=== PATIENT | male | born 1965 | race Caucasian/White ===

== ENCOUNTER 2024-01-08 19:57 | Inpatient (IN) ==
--- NOTE | 2024-01-08 20:47 | Emergency Department Note ---
Impression & Plan Acute hyponatremia, Weakness ED Provider Note NAME: DAVE [id number] SHAHLA AGE: 58 SEX: M : 1965 ARRIVES VIA: Walk-In INFORMANT: Patient ED PROVIDER(S): Lennox Zimmerman DO CHIEF COMPLAINT: dizzy HPI: Patient is a 58-year-old male who presents ER for dizziness which has been present for the past 2 weeks. He notes he has a history of hyponatremia and [facility] Per the guards he has had blood work drawn and his sodium was slightly low. Patient denies any headache or change in vision. No chest pain or shortness of breath. No nausea, vomiting, or diarrhea. No dysuria, urgency, or frequency. No other exacerbating or remitting factors. ADDITIONAL HISTORY OBTAINED: Per HPI Chronic Medical/Social Conditions Affecting Care: Per HPI PAST MEDICAL HISTORY:See Below PAST SURGICAL HISTORY:See Below FAMILY HISTORY:See Below SOCIAL HISTORY:See Below HOME MEDICATIONS:See Below ALLERGIES:See Below VITALS:See Below PHYSICAL EXAMINATION: GENERAL: Sitting up in bed, alert, well appearing, well nourished, no distress, non-toxic EYE EXAM: normal conjunctiva. PERRL and EOM's intact. OROPHARYNX: no exudate, no erythema, lips, buccal mucosa, and tongue normal and mucous membranes are moist NECK: supple, no nuchal rigidity, no adenopathy, non-tender LUNGS: Clear to auscultation. Normal chest wall mechanics HEART: no murmurs, S1 normal and S2 normal ABDOMEN: abdomen soft, non-tender, normo-active bowel sounds, no masses, no rebound or guarding. UPPER EXTREMITIES: upper extremities are grossly normal. LOWER EXTREMITIES: No pitting edema. NEURO EXAM: Normal sensorium, cranial nerves II-XII intact, normal speech, no weakness of arms, no weakness of legs. No drift. Finger to nose intact. Gross sensation intact. MEDICAL DECISION MAKING: Patient is a 58-year-old male who presents ER [facility] for [facility]. IV was established blood work is obtained. Labs show no significant leukocytosis or anemia. BMP with hyponatremia 126. No other sodiums to go off of. T. bili LFTs troponin was negative. Lipase was normal. COVID-negative. CT angios of the head and neck were negative. He was given IV fluids. Updated bedside. Discussed with the guards as well as the hospitalist here and patient will be admitted for further workup of his hyponatremia and dizziness Consults/Care Managements Discussions: Per MDM Triage Nursing notes reviewed. Limited review of prior medical records performed Vital Signs: reviewed and remarkable for HTN Differential diagnosis: Differential diagnosis includes etiologies such as benign positional vertigo, dehydration, hypovolemia, anemia, tumor, infection, hypoglycemia, electrolyte abnormalities, cardiac sources, intracerebral event, toxicologic, neurological, as well as others were entertained. ER treatment provided: See below Diagnostics interpreted by me include EKG and cardiac monitoring as listed below: -Cardiac Monitoring: An order was placed for continuous cardiac monitoring. The monitor shows a rate of 70 with sinus rhythm. -ECG: Sinus rhythm rate of 58 Normal axis No PVCs QTc 396 -Laboratory studies:Interpreted by me as stated above in MDM and shown below. Imaging studies: Xrays: As interpreted by me: Portable AP upright 1 view of the chest shows no focal infiltrate CTs show: none Procedures:none Critical Care: None Past Med/Surg History Social History Smoking Status: Current every day smoker Preferred Language: Welsh Feels Safe at Home: Yes Results & Data (ED) Vital Signs Vital Signs - 24 hr 01/08/24 20:04 01/08/24 20:38 01/08/24 20:50 Temperature 36.3 C L 36.9 C Temperature Source Temporal Artery Scan Oral Pulse Rate 65 61 Pulse Rate [Apical] 68 Pulse Rate from SpO2 Sensor Pulse Rhythm [Apical] Regular Pulse Strength [Apical] Normal Respiratory Rate 18 20 Respiratory Effort / Characteristics Non-Labored Spontaneous Respiratory Depth Normal Respiratory Pattern Regular Blood Pressure 158/94 H Blood Pressure [Left Arm] 118/90 Blood Pressure Mean 115 Blood Pressure Mean [Left Arm] 99 Blood Pressure Position [Left Arm] Semi-fowlers Pulse Oximetry 98 93 Oxygen Delivery Method Room Air Room Air Sepsis Recent Fever Within 48 Hours No Sepsis New/Unexplained Change in Mental Status No Sepsis Action Taken by Nursing No Action Required 01/08/24 20:50 01/08/24 21:40 Temperature Temperature Source Pulse Rate 56 L Pulse Rate [Apical] Pulse Rate from SpO2 Sensor 57 L Pulse Rhythm [Apical] Pulse Strength [Apical] Respiratory Rate 20 Respiratory Effort / Characteristics Respiratory Depth Respiratory Pattern Blood Pressure 132/72 Blood Pressure [Left Arm] Blood Pressure Mean 92 Blood Pressure Mean [Left Arm] Blood Pressure Position [Left Arm] Pulse Oximetry 93 100 Oxygen Delivery Method Room Air Room Air Sepsis Recent Fever Within 48 Hours Sepsis New/Unexplained Change in Mental Status Sepsis Action Taken by Nursing Laboratory Data 01/08/24 20:25 01/08/24 20:25 Lab Results 01/08/24 01/08/24 Range/Units 20:25 22:20 WBC 6.86 (4.8-10.8) K/ul RBC 3.74 L (4.70-6.10) M/uL Hgb 12.1 L (14.0-18.0) g/dl Hct 33.4 L (42.0-52.0) % MCV 89.3 (80.0-100.0) fL MCH 32.4 (25.0-34.0) pg MCHC 36.2 H (32.0-36.0) g/dL RDW Std Deviation 38.0 (36.4-46.3) fL RDW Coeff of Nancy 11.9 (11.5-14.5) % Plt Count 221 (130-400) K/uL MPV 8.9 L (9.4-12.4) fL Immature Gran % (Auto) 0.3 % Neut % (Auto) 45.9 % Lymph % (Auto) 41.4 % [place] % (Auto) 11.1 % Eos % (Auto) 1.0 % Baso % (Auto) 0.3 % Neut # (Auto) 3.15 (1.40-6.50) K/uL Lymph # (Auto) 2.84 (1.20-3.40) K/uL [place] # (Auto) 0.76 H (0.11-0.59) K/uL Eos # (Auto) 0.07 (0.00-0.50) K/uL Baso # (Auto) 0.02 (0.00-0.20) K/uL Immature Gran # (Auto) 0.02 (0.01-0.20) K/uL Sodium 126 L (136-145) mmol/L Potassium 4.2 (3.5-5.1) mmol/L Chloride 94 L (98-107) mmol/L Carbon Dioxide 27 (21-32) mmol/L Anion Gap 5 (3-11) BUN 14 (6-23) mg/dl Creatinine 0.59 L (0.6-1.4) mg/dl Est Cr Clr Drug Dosing 141.8 ml/min Est GFR ( Amer) 127.5 ml/min Est GFR (Non-Af Amer) 110.0 ml/min BUN/Creatinine Ratio 23.7 H (10-20) Glucose 98 (70-99(Fasting)) mg/dl Calcium 9.1 (8.6-10.3) mg/dl Total Bilirubin 0.3 (0.2-1.0) mg/dl AST 13 (13-39) U/L ALT 12 (7-52) U/L Alkaline Phosphatase 63 (34-104) U/L Troponin I High Sens < 2.3 (0-20) pg/ml Total Protein 6.8 (6.0-8.3) gm/dl Albumin 3.8 (3.4-5.0) gm/dl Globulin 3.0 (2.5-4.0) gm/dl Albumin/Globulin Ratio 1.3 (0.9-2) Lipase 9 L (11-82) U/L SARS-CoV-2, RNA, NAAT NEGATIVE (NEGATIVE) Administered Medications Discontinued Medications Sodium Chloride (Nss) 1,000 mls @ 999 mls/hr IV .Q1H1M ONE Stop: 01/08/24 21:45 Last Infusion: 01/08/24 22:47 Dose: Infused Documented By: Admin: 01/08/24 21:19 Dose: 999 mls/hr Documented By: FRANCY Ioversol (Optiray 320 125ml) 117 ml IV ONCE ONE Stop: 01/08/24 21:31 Last Admin: 01/08/24 21:31 Dose: 117 ml Documented By: KELLEN Imaging Data Radiologist's Impression: Head CTA 01/08/24 20:45 Exam(s): CTA HEAD W/WO Contrast IV Amt: 117 ml optiray 320 EXAM: CT Angiography Head Without and With Intravenous Contrast CLINICAL HISTORY: Dizziness. TECHNIQUE: Axial computed tomographic angiography images of the head without and with intravenous contrast. CTDI is 37.42 mGy and DLP is 693.86 mGy-cm. Automated exposure control was utilized for the study. A dose lowering technique was utilized adhering to the principles of ALARA. MIP reconstructed images were created and reviewed. CONTRAST: Patient received 117 ml optiray 320 of IV contrast COMPARISON: No relevant prior studies available. FINDINGS: VASCULATURE: Right internal carotid artery: No acute findings. Intracranial segment is patent with no significant stenosis. No aneurysm. Right anterior cerebral artery: Unremarkable. No occlusion or significant stenosis. No aneurysm. Right middle cerebral artery: Unremarkable. No occlusion or significant stenosis. No aneurysm. Right posterior cerebral artery: Unremarkable. No occlusion or significant stenosis. No aneurysm. Right vertebral artery: Unremarkable as visualized. Left internal carotid artery: Mild atherosclerosis of the intracranial portion of the left internal carotid artery without significant stenosis. No aneurysm. Left anterior cerebral artery: Unremarkable. No occlusion or significant stenosis. No aneurysm. Left middle cerebral artery: Unremarkable. No occlusion or significant stenosis. No aneurysm. Left posterior cerebral artery: Unremarkable. No occlusion or significant stenosis. No aneurysm. Left vertebral artery: Unremarkable as visualized. Basilar artery: Unremarkable. No occlusion or significant stenosis. No aneurysm. HEAD: Brain: No intracranial hemorrhage, mass-effect or midline shift. No abnormal extra axial fluid. No evidence of acute infarct. Mild periventricular white matter hypodensities are most consistent with chronic microangiopathy. Ventricles: Unremarkable. No ventriculomegaly. Bones/joints: No acute fracture. Soft tissues: Unremarkable. Sinuses: Unremarkable as visualized. No acute sinusitis. Mastoid air cells: Unremarkable as visualized. No mastoid effusion. IMPRESSION: 1. No acute intracranial finding. 2. No acute finding of the arteries of the head. Electronically signed by: Mahnaz Aguilera MD 01/08/24 22:24 PM Discharge Plan Visit Data Chief Complaint: Illness Stated Complaint: DELIRIUM, LOW SODIUM ED Provider: Lennox Zimmerman Discharge Problem: Acute hyponatremia, Weakness Forms Stand Alone Forms: [facility] Referrals Referrals: PCP,NO [Physician] -
[2024-01-08 21:05] LABS: Alanine Aminotransferase 12 U/L (7-52); Albumin Globulin Ratio 1.3 (0.9-2); Albumin Level 3.8 gm/dl (3.4-5.0); Alkaline Phosphatase 63 U/L (34-104); Anion Gap 5 (3-11); Aspartate Aminotransferase 13 U/L (13-39); BUN Creatinine Ratio 23.7 (10-20); Bilirubin,Total 0.3 mg/dl (0.2-1.0); Blood Urea Nitrogen 14 mg/dl (6-23); Calcium 9.1 mg/dl (8.6-10.3); Carbon Dioxide 27 mmol/L (21-32); Chloride 94 mmol/L (98-107); Creatinine Clr Calc Pharmacy 141.8 ml/min; Est GFR (African American) 127.5 ml/min; Glucose 98 mg/dl (70-99(Fasting)); Lipase 9 U/L (11-82); Potassium 4.2 mmol/L (3.5-5.1); Sodium 126 mmol/L (136-145); Total Protein 6.8 gm/dl (6.0-8.3)
[2024-01-08 21:12] LABS: Troponin I High Sensitivity < 2.3 pg/ml (0-20)
[2024-01-08] MEDS: SODIUM CHLORIDE 0.9% 1,000 ML IV ONE (21:19)
[2024-01-08 21:26] LABS: Basophils # (auto) 0.02 K/uL (0.00-0.20); Basophils % (auto) 0.3 %; Eosinophils # (auto) 0.07 K/uL (0.00-0.50); Hematocrit (blood only) 33.4 % (42.0-52.0); Hemoglobin 12.1 g/dl (14.0-18.0); Immature Granulocytes # (auto) 0.02 K/uL (0.01-0.20); Immature Granulocytes % (auto) 0.3 %; Lymphocytes # (auto) 2.84 K/uL (1.20-3.40); Lymphocytes % (auto) 41.4 %; Mean Corpuscular Hemoglobin 32.4 pg (25.0-34.0); Mean Corpuscular Hgb Conc 36.2 g/dL (32.0-36.0); Mean Corpuscular Volume 89.3 fL (80.0-100.0); Mean Platelet Volume 8.9 fL (9.4-12.4); Monocytes # (auto) 0.76 K/uL (0.11-0.59); Monocytes % (auto) 11.1 %; Neutrophils # (auto) 3.15 K/uL (1.40-6.50); Neutrophils % (auto) 45.9 %; Platelet Count 221 K/uL (130-400); RDW Coefficient of Variation 11.9 % (11.5-14.5); Red Blood Count 3.74 M/uL (4.70-6.10); White Blood Count 6.86 K/ul (4.8-10.8)
[2024-01-08] MEDS: OPTIRAY 320 125ml IV ONE (21:31)
--- NOTE | 2024-01-08 22:25 | CT Scan Report ---
Exam(s): CTA HEAD W/WO Contrast IV Amt: 117 ml optiray 320 EXAM: CT Angiography Head Without and With Intravenous Contrast CLINICAL HISTORY: Dizziness. TECHNIQUE: Axial computed tomographic angiography images of the head without and with intravenous contrast. CTDI is 37.42 mGy and DLP is 693.86 mGy-cm. Automated exposure control was utilized for the study. A dose lowering technique was utilized adhering to the principles of ALARA. MIP reconstructed images were created and reviewed. CONTRAST: Patient received 117 ml optiray 320 of IV contrast COMPARISON: No relevant prior studies available. FINDINGS: VASCULATURE: Right internal carotid artery: No acute findings. Intracranial segment is patent with no significant stenosis. No aneurysm. Right anterior cerebral artery: Unremarkable. No occlusion or significant stenosis. No aneurysm. Right middle cerebral artery: Unremarkable. No occlusion or significant stenosis. No aneurysm. Right posterior cerebral artery: Unremarkable. No occlusion or significant stenosis. No aneurysm. Right vertebral artery: Unremarkable as visualized. Left internal carotid artery: Mild atherosclerosis of the intracranial portion of the left internal carotid artery without significant stenosis. No aneurysm. Left anterior cerebral artery: Unremarkable. No occlusion or significant stenosis. No aneurysm. Left middle cerebral artery: Unremarkable. No occlusion or significant stenosis. No aneurysm. Left posterior cerebral artery: Unremarkable. No occlusion or significant stenosis. No aneurysm. Left vertebral artery: Unremarkable as visualized. Basilar artery: Unremarkable. No occlusion or significant stenosis. No aneurysm. HEAD: Brain: No intracranial hemorrhage, mass-effect or midline shift. No abnormal extra axial fluid. No evidence of acute infarct. Mild periventricular white matter hypodensities are most consistent with chronic microangiopathy. Ventricles: Unremarkable. No ventriculomegaly. Bones/joints: No acute fracture. Soft tissues: Unremarkable. Sinuses: Unremarkable as visualized. No acute sinusitis. Mastoid air cells: Unremarkable as visualized. No mastoid effusion. IMPRESSION: 1. No acute intracranial finding. 2. No acute finding of the arteries of the head. Electronically signed by: Mahnaz Aguilera MD 01/08/24 22:24 PM
--- NOTE | 2024-01-09 02:11 | History & Physical Report ---
Date of Service January 09, 2024 Assessment & Plan (1) Acute hyponatremia: Plan: 58-year-old male with past medical history significant for hyperlipidemia, hypertension, depression, back pain, history of opiate use withdrawal, history of intermittent asthma GERD, [facility] disorder [facility] because [facility]. Patient states he had hyponatremia up to 4 times in about last couple of years. States his psych meds were adjusted and at 1 point of time on salt tablets.. Last 2 weeks he is feeling weak and fatigued not able to think straight and decreased concentration which are his usual symptoms for hyponatremia. Appetite is okay. No nausea vomiting. No diarrhea or constipation. Denies any headache. No dizziness. Vision is okay. No earache or runny nose or sore throat. No cough. No fevers. No chest pain or shortness of breath. No abdominal pain. Normal bowel and bladder movements. Currently resting comfortably and hemodynamically stable. Acute hyponatremia Sodium 126 Will do serum osmolality, urine osmolality and urine sodium levels Possible SIADH Will do fluid restrictions 1200 mill per day Slow correction BMP every 6 hours Consult nephrology for further recommendations Close monitoring med/tele Depression Anxiety Psychiatric illness Continue current medications Hypertension On propranolol and losartan Will monitor Hyperlipidemia On statin DVT prophylaxis Lovenox Disposition Med/tele Full code History of Present Illness Chief Complaint: Hyponatremia Primary Care Provider: NELI Byers 58-year-old male with past medical history significant for hyperlipidemia, hypertension, depression, back pain, history of opiate use withdrawal, history of intermittent asthma GERD, anxiety disorder coming from [facility] because of hyponatremia. Patient states he had hyponatremia about 4 times in about last couple of years. States his psych meds were adjusted and at one point of time was on salt tablets.. Last 2 weeks he is feeling weak and fatigued not able to think straight and decreased concentration which are his usual symptoms for hyponatremia. Appetite is okay. No nausea vomiting. No diarrhea or constipation. Denies any headache. No dizziness. Vision is okay. No earache or runny nose or sore throat. No cough. No fevers. No chest pain or shortness of breath. No abdominal pain. Normal bowel and bladder movements. Currently resting comfortably and hemodynamically stable. Past medical history as mentioned above Past surgical history. He has no surgeries. He has a plate in his right hand. Social history. Smokes about a pack a day. No alcohol. 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 Family history. Father and mother had depression. Father had multiple back surgeries. Allergies Allergy/AdvReac Type Severity Reaction Status Date / Time No Known Allergies Allergy Unverified 01/09/24 01:21 Home Medications Medication Instructions Recorded Confirmed Type atorvastatin 10 mg tablet 10 mg PO HS 01/09/24 01/09/24 History cyanocobalamin (vitamin B-12) 500 500 mcg PO DAILY 01/09/24 01/09/24 History mcg tablet (Vitamin B-12) divalproex 500 mg tablet,delayed 1,000 mg PO BID 01/09/24 01/09/24 History release duloxetine 30 mg capsule,delayed 30 mg PO QAM 01/09/24 01/09/24 History release duloxetine 60 mg capsule,delayed 60 mg PO QPM 01/09/24 01/09/24 History release famotidine 20 mg tablet 20 mg PO DAILY 01/09/24 01/09/24 History guanfacine 1 mg tablet 1 mg PO HS 01/09/24 01/09/24 History hydroxyzine pamoate 50 mg capsule 50 mg PO DAILY 01/09/24 01/09/24 History hydroxyzine pamoate 50 mg capsule 100 mg PO HS 01/09/24 01/09/24 History levothyroxine 50 mcg tablet 50 mcg PO DAILY 01/09/24 01/09/24 History losartan 25 mg tablet 25 mg PO QPM 01/09/24 01/09/24 History naltrexone microspheres 380 mg 380 mg IM .[id number] 01/09/24 01/09/24 History intramuscular suspension,extended release (Vivitrol) omeprazole 20 mg tablet,delayed 20 mg PO DAILY 01/09/24 01/09/24 History release oxcarbazepine 300 mg tablet 300 mg PO BID 01/09/24 01/09/24 History oxybutynin chloride 5 mg tablet 5 mg PO BID 01/09/24 01/09/24 History propranolol 20 mg tablet 20 mg PO QAM 01/09/24 01/09/24 History propranolol 40 mg tablet 40 mg PO HS 01/09/24 01/09/24 History Past Med/Surg History Social History Smoking Status: Current every day smoker Tobacco Type: E-cigarettes / Vaping Second Hand Exposure: No; Do You Dip or Chew Tobacco: No; Tobacco Cessation Education Requested by Patient: No Hx Alcohol Use: No Hx Substance Use: No Preferred Language: Russian Communication Ability: Effective Sign Builder Supervisor Required: No Beliefs That Will Affect Care: None Current Living Situation: Other Current Living Situation Comment: [facility] Other Information That Helps Us Care for You: No Feels Safe at Home: Yes Safety Concerns: Feels Safe At This Time Assistive Devices: None Review of Systems Review of Systems: All systems reviewed & are unremarkable except as noted in HPI & below Physical Exam Physical Exam: General- Not in distress. Head- atraumatic Eyes- PERRL. ENT- oropharynx clear Neck- supple, no JVD. Lungs- clear to auscultation no wheezing or crackles. Heart- regular rhythm; no murmur, no gallop. Abdomen- normal bowel sounds, soft, nontender, no distension. Extremities- no pretibial edema, no erythema seen. Neuro- alert, oriented PERRL, no facial palsy; no dysarthria; moves extremities. Skin- warm & dry Results & Data Results & Data Vital Signs (Past 12 Hours) Vital Signs Temp Pulse Pulse Resp BP BP Pulse Ox 01/09/24 01:00 54 L 16 140/91 96 01/08/24 21:40 56 L 20 132/72 100 01/08/24 20:50 93 01/08/24 20:50 36.9 C 68 20 118/90 93 01/08/24 20:38 61 01/08/24 20:04 36.3 C L 65 18 158/94 H 98 O2 Del Method 01/09/24 01:00 Room Air 01/08/24 21:40 Room Air 01/08/24 20:50 Room Air 01/08/24 20:50 Room Air 01/08/24 20:38 01/08/24 20:04 Room Air Diagnostic Findings Laboratory Results WBC 6.86 K/ul (4.8-10.8) 01/08/24 20:25 RBC 3.74 M/uL (4.70-6.10) L 01/08/24 20:25 Hgb 12.1 g/dl (14.0-18.0) L 01/08/24 20:25 Hct 33.4 % (42.0-52.0) L 01/08/24 20:25 MCV 89.3 fL (80.0-100.0) 01/08/24 20: MCH 32.4 pg (25.0-34.0) 01/08/24: MCHC 36.2 g/dL (32.0-36.0) H 01/08/24: RDW Std Deviation 38.0 fL (36.4-46.3) 01/08/24: RDW Coeff of Nancy 11.9 % (11.5-14.5) 01/08/24: Plt Count 221 K/uL (130-400) 01/08/24 20: MPV 8.9 fL (9.4-12.4) L 01/08/24: Immature Gran % (Auto) 0.3 % 01/08/24: Neut % (Auto) 45.9 % 01/08/24: Lymph % (Auto) 41.4 % 01/08/24: [place] % (Auto) 11.1 % 01/08/24: Eos % (Auto) 1.0 % 01/08/24: Baso % (Auto) 0.3 % 01/08/24: Neut # (Auto) 3.15 K/uL (1.40-6.50) 01/08/24: Lymph # (Auto) 2.84 K/uL (1.20-3.40) 01/08/24: [place] # (Auto) 0.76 K/uL (0.11-0.59) H 01/08/24: Eos # (Auto) 0.07 K/uL (0.00-0.50) 01/08/24 20: Baso # (Auto) 0.02 K/uL (0.00-0.20) 01/08/24: Immature Gran # (Auto) 0.02 K/uL (0.01-0.20) 01/08/24: Sodium 126 mmol/L (136-145) L 01/08/24: Potassium 4.2 mmol/L (3.5-5.1) 01/08/24 20: Chloride 94 mmol/L (98-107) L 01/08/24 20: Carbon Dioxide 27 mmol/L (21-32) 01/08/24 20:25 Anion Gap 5 (3-11) 01/08/24 20:25 BUN 14 mg/dl (6-23) 01/08/24 20:25 Creatinine 0.59 mg/dl (0.6-1.4) L 01/08/24 20:25 Est Cr Clr Drug Dosing 141.8 ml/min 01/08/24 20:25 Est GFR ( Amer) 127.5 ml/min 01/08/24 20:25 Est GFR (Non-Af Amer) 110.0 ml/min 01/08/24 20:25 BUN/Creatinine Ratio 23.7 (10-20) H 01/08/24 20:25 Glucose 98 mg/dl (70-99(Fasting)) 01/08/24 20: Calcium 9.1 mg/dl (8.6-10.3) 01/08/24 20: Total Bilirubin 0.3 mg/dl (0.2-1.0) 01/08/24 20:25 AST 13 U/L (13-39) 01/08/24 20:25 ALT 12 U/L (7-52) 01/08/24 20:25 Alkaline Phosphatase 63 U/L (34-104) 01/08/24 20:25 Troponin I High Sens < 2.3 pg/ml (0-20) 01/08/24 20: Total Protein 6.8 gm/dl (6.0-8.3) 01/08/24 20:25 Albumin 3.8 gm/dl (3.4-5.0) 01/08/24 20:25 Globulin 3.0 gm/dl (2.5-4.0) 01/08/24 20:25 Albumin/Globulin Ratio 1.3 (0.9-2) 01/08/24 20:25 Lipase 9 U/L (11-82) L 01/08/24 20:25 SARS-CoV-2, RNA, NAAT NEGATIVE (NEGATIVE) 01/08/24 22:20 Impressions Head CTA 01/08/24 20:45 Exam(s): CTA HEAD W/WO Contrast IV Amt: 117 ml optiray 320 EXAM: CT Angiography Head Without and With Intravenous Contrast CLINICAL HISTORY: Dizziness. TECHNIQUE: Axial computed tomographic angiography images of the head without and with intravenous contrast. CTDI is 37.42 mGy and DLP is 693.86 mGy-cm. Automated exposure control was utilized for the study. A dose lowering technique was utilized adhering to the principles of ALARA. MIP reconstructed images were created and reviewed. CONTRAST: Patient received 117 ml optiray 320 of IV contrast COMPARISON: No relevant prior studies available. FINDINGS: VASCULATURE: Right internal carotid artery: No acute findings. Intracranial segment is patent with no significant stenosis. No aneurysm. Right anterior cerebral artery: Unremarkable. No occlusion or significant stenosis. No aneurysm. Right middle cerebral artery: Unremarkable. No occlusion or significant stenosis. No aneurysm. Right posterior cerebral artery: Unremarkable. No occlusion or significant stenosis. No aneurysm. Right vertebral artery: Unremarkable as visualized. Left internal carotid artery: Mild atherosclerosis of the intracranial portion of the left internal carotid artery without significant stenosis. No aneurysm. Left anterior cerebral artery: Unremarkable. No occlusion or significant stenosis. No aneurysm. Left middle cerebral artery: Unremarkable. No occlusion or significant stenosis. No aneurysm. Left posterior cerebral artery: Unremarkable. No occlusion or significant stenosis. No aneurysm. Left vertebral artery: Unremarkable as visualized. Basilar artery: Unremarkable. No occlusion or significant stenosis. No aneurysm. HEAD: Brain: No intracranial hemorrhage, mass-effect or midline shift. No abnormal extra axial fluid. No evidence of acute infarct. Mild periventricular white matter hypodensities are most consistent with chronic microangiopathy. Ventricles: Unremarkable. No ventriculomegaly. Bones/joints: No acute fracture. Soft tissues: Unremarkable. Sinuses: Unremarkable as visualized. No acute sinusitis. Mastoid air cells: Unremarkable as visualized. No mastoid effusion. IMPRESSION: 1. No acute intracranial finding. 2. No acute finding of the arteries of the head. Electronically signed by: Mahnaz Aguilera MD 01/08/24 22:24 PM ECG Additional Comments: ECG. Normal sinus bradycardia with first-degree AV block at rate of 58. No acute ST changes seen. Code Status & VTE Plan VTE Prophylaxis Plan VTE Prophylaxis will be ordered: Yes
[2024-01-09] MEDS ORDERED: NITROGLYCERIN SL 0.4 MG/TAB TAB SL PRN (03:12)
[2024-01-09] MEDS ORDERED: ACETAMINOPHEN 325 MG TAB PO PRN (03:12)
[2024-01-09] MEDS ORDERED: POLYETHYLENE (MIRALAX) 17 GM PACK PO PRN (03:12)
[2024-01-09 04:30] LABS: Basophils # (auto) 0.02 K/uL (0.00-0.20); Basophils % (auto) 0.3 %; Eosinophils # (auto) 0.07 K/uL (0.00-0.50); Eosinophils % (auto) 1.1 %; Hematocrit (blood only) 35.3 % (42.0-52.0); Hemoglobin 12.6 g/dl (14.0-18.0); Immature Granulocytes # (auto) 0.02 K/uL (0.01-0.20); Immature Granulocytes % (auto) 0.3 %; Lymphocytes # (auto) 2.72 K/uL (1.20-3.40); Lymphocytes % (auto) 42.8 %; Mean Corpuscular Hemoglobin 32.6 pg (25.0-34.0); Mean Corpuscular Hgb Conc 35.7 g/dL (32.0-36.0); Mean Corpuscular Volume 91.5 fL (80.0-100.0); Mean Platelet Volume 8.6 fL (9.4-12.4); Monocytes # (auto) 0.72 K/uL (0.11-0.59); Monocytes % (auto) 11.3 %; Neutrophils # (auto) 2.81 K/uL (1.40-6.50); Neutrophils % (auto) 44.2 %; Platelet Count 216 K/uL (130-400); RDW Coefficient of Variation 12.2 % (11.5-14.5); RDW Standard Deviation 40.7 fL (36.4-46.3); Red Blood Count 3.86 M/uL (4.70-6.10); White Blood Count 6.36 K/ul (4.8-10.8)
[2024-01-09] MEDS: ENOXAPARIN INJ 40 MG/0.4 ML SYR SQ SCH (04:31)
[2024-01-09 04:43] LABS: Calcium 9.2 mg/dl (8.6-10.3); Creatinine Clr Calc Pharmacy 121.3 ml/min; Est GFR (African American) 119.6 ml/min; Est GFR (Non-African American) 103.2 ml/min; Potassium 3.8 mmol/L (3.5-5.1)
[2024-01-09] MEDS: LEVOTHYROXINE SODIUM 50 MCG TABLET PO SCH (06:24)
--- NOTE | 2024-01-09 08:28 | XRay Report ---
XR chest 1V portable CLINICAL HISTORY: Chest pain, nonspecific. COMPARISON STUDY: No previous studies for comparison. FINDINGS: Lung volumes are normal. There is no consolidation. Linear left basilar densities represent atelectasis. There is no pneumothorax or pleural effusion. Cardiac size is normal. Mediastinal conto urs are normal. There is no evidence for pulmonary edema. IMPRESSION: No acute cardiopulmonary findings. ACT 112: Negative or not required by law. Electronically signed by: Jonny Schmitz M.D. 01/09/2024 8:27 AM
[2024-01-09] MEDS: OXcarbazepine 150 MG TABLET PO SCH (08:37)
[2024-01-09] MEDS: oxyBUTYnin chloride 5 MG TAB PO SCH (08:37)
[2024-01-09] MEDS: PROPRANOLOL HCL 20 MG TAB PO SCH ×2 (08:37→21:53)
[2024-01-09] MEDS: FAMOTIDINE 20 MG TAB PO SCH (08:37)
[2024-01-09] MEDS: DULoxetine HCL 30 MG CAP PO SCH (08:37)
[2024-01-09] MEDS: DIVALPROEX DELAY RELEASE 500 MG TAB PO SCH (08:37)
[2024-01-09] MEDS: CYANOCOBALAMIN (B-12) 500 MCG TABLET PO SCH (08:37)
[2024-01-09] MEDS: hydrOXYzine HCl 25 MG TAB PO SCH ×2 (08:37→21:52)
[2024-01-09] MEDS: PANTOprazole 40 MG TAB PO SCH (08:37)
[2024-01-09] MEDS: DEXTROSE 5% 1,000 ML IV SCH (11:23)
[2024-01-09 11:38] LABS: BUN Creatinine Ratio 13.6 (10-20); Creatinine Clr Calc Pharmacy 141.8 ml/min; Est GFR (African American) 127.5 ml/min
--- NOTE | 2024-01-09 11:50 | Nephrology Consultation ---
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 Admission sodium was 126. Urine osmolality was 236 and urine sodium of 60. Patient is on duloxetine and divalproex both of which can cause SIADH. Patient also endorsed high fluid intake well over 100 ounces daily. Sodium is improved with fluid restriction. From renal standpoint patient can be discharged with the fluid limit of 1.5 L daily. Patient is agreeable to follow the fluid limit. He can have repeat sodium in a week and follow-up with his outpatient neurologist at present. History of Present Illness Reason for Consultation: Hyponatremia Requesting Physician: Lopez Zhu MD Attending Physician: Lopez Zhu MD History of Present Illness 58-year-old male with past medical history significant for hyperlipidemia, hypertension, depression, back pain, history of opiate use withdrawal, history of intermittent asthma GERD, anxiety disorder who was admitted from retirement with a sodium of 126. Patient takes divalproex and duloxetine both of which are notorious for causing SIADH. He also told me he drinks well over eight 12 ounce glasses of water in addition to juice and soda. Patient says he was told to have a fluid limit at 1 point but has not been following it. No shortness of breath or leg swelling. He was placed on a fluid limit here and sodium is up trended to 134. Patient is able to eat and drink. No nausea, vomiting or diarrhea. No pain. Urine osmolality was 236, urine sodium of 60, serum osmolality of 278. Allergies Allergy/AdvReac Type Severity Reaction Status Date / Time No Known Allergies Allergy Unverified 01/09/24 01:21 Home Medications Medication Instructions Recorded Confirmed Type atorvastatin 10 mg tablet 10 mg PO HS 01/09/24 01/09/24 History cyanocobalamin (vitamin B-12) 500 500 mcg PO DAILY 01/09/24 01/09/24 History mcg tablet (Vitamin B-12) divalproex 500 mg tablet,delayed 1,000 mg PO BID 01/09/24 01/09/24 History release duloxetine 30 mg capsule,delayed 30 mg PO QAM 01/09/24 01/09/24 History release duloxetine 60 mg capsule,delayed 60 mg PO QPM 01/09/24 01/09/24 History release famotidine 20 mg tablet 20 mg PO DAILY 01/09/24 01/09/24 History guanfacine 1 mg tablet 1 mg PO HS 01/09/24 01/09/24 History hydroxyzine pamoate 50 mg capsule 50 mg PO DAILY 01/09/24 01/09/24 History hydroxyzine pamoate 50 mg capsule 100 mg PO HS 01/09/24 01/09/24 History levothyroxine 50 mcg tablet 50 mcg PO DAILY 01/09/24 01/09/24 History losartan 25 mg tablet 25 mg PO QPM 01/09/24 01/09/24 History naltrexone microspheres 380 mg 380 mg IM .[id number] 01/09/24 01/09/24 History intramuscular suspension,extended release (Vivitrol) omeprazole 20 mg tablet,delayed 20 mg PO DAILY 01/09/24 01/09/24 History release oxcarbazepine 300 mg tablet 300 mg PO BID 01/09/24 01/09/24 History oxybutynin chloride 5 mg tablet 5 mg PO BID 01/09/24 01/09/24 History propranolol 20 mg tablet 20 mg PO QAM 01/09/24 01/09/24 History propranolol 40 mg tablet 40 mg PO HS 01/09/24 01/09/24 History Patient History Social History Smoking Status: Current every day smoker Tobacco Type: E-cigarettes / Vaping Second Hand Exposure: No; Do You Dip or Chew Tobacco: No; Tobacco Cessation Education Requested by Patient: No Hx Alcohol Use: No Hx Substance Use: No Preferred Language: Fijian Communication Ability: Effective Sec Reporting Consultant Required: No Beliefs That Will Affect Care: None Current Living Situation: Other Current Living Situation Comment: [facility] Other Information That Helps Us Care for You: No Feels Safe at Home: Yes Safety Concerns: Feels Safe At This Time Assistive Devices: None Review of Systems 2 Review of Systems: All other systems were reviewed and negative except as noted in HPI Physical Exam 2 Physical Exam: General exam: Appears comfortable, no acute distress HEENT: Pupils are equal and reactive to light Neck: No JVD, neck is supple trachea is midline Respiratory system: Clear breath sounds bilaterally. Gastrointestinal: Abdomen is soft, non distended, non tender, bowel sounds are present CVS: Regular rate and rhythm. No murmurs, rubs or gallops Musculoskeletal: No joint or muscle tenderness Extremities: Non tender, no edema, peripheral pulses are present Neuro: Oriented, no tremors, no focal neurological deficits Skin: No rashes Results & Data Vital Signs (Past 12 Hours) Vital Signs Pulse Pulse Resp BP BP Pulse Ox Pulse Ox 01/09/24 07:23 16 01/09/24 07:03 53 L 01/09/24 07:00 54 L 18 132/84 94 01/09/24 06:46 55 L 16 123/82 96 01/09/24 06:30 59 L 16 91 01/09/24 06:01 53 L 16 96 01/09/24 06:01 133/82 01/09/24 06:00 57 L 14 95 01/09/24 05:30 57 L 14 95 01/09/24 05:00 125/78 01/09/24 05:00 57 L 23 94 01/09/24 04:30 58 L 24 96 01/09/24 04:00 54 L 16 92 01/09/24 04:00 117/75 01/09/24 04:00 96 01/09/24 04:00 55 L 16 117/75 96 01/09/24 03:30 52 L 17 94 01/09/24 03:00 56 L 21 93 01/09/24 02:30 53 L 19 01/09/24 02:00 133/86 01/09/24 02:00 54 L 16 01/09/24 01:30 54 L 17 01/09/24 01:00 56 L 16 01/09/24 01:00 54 L 16 140/91 96 01/09/24 00:37 52 L 01/09/24 00:30 52 L 16 98 01/09/24 00:01 121/97 01/09/24 00:01 51 L 24 81 L 01/09/24 00:00 52 L 16 97 O2 Del Method O2 Del Method O2 Flow Rate 01/09/24 07:23 01/09/24 07:03 01/09/24 07:00 01/09/24 06:46 Room Air 01/09/24 06:30 01/09/24 06:01 01/09/24 06:01 01/09/24 06:00 01/09/24 05:30 01/09/24 05:00 01/09/24 05:00 01/09/24 04:30 01/09/24 04:00 01/09/24 04:00 01/09/24 04:00 Room Air 0 01/09/24 04:00 Room Air 01/09/24 03:30 01/09/24 03:00 01/09/24 02:30 01/09/24 02:00 01/09/24 02:00 01/09/24 01:30 01/09/24 01:00 01/09/24 01:00 Room Air 01/09/24 00:37 01/09/24 00:30 01/09/24 00:01 01/09/24 00:01 01/09/24 00:00 Laboratory Results 01/09/24 10:55 01/08/24 01/09/24 20:25 04:11 WBC 6.86 6.36 RBC 3.74 L 3.86 L MCV 89.3 91.5 MCH 32.4 32.6 MCHC 36.2 H 35.7 RDW Std Deviation 38.0 40.7 RDW Coeff of Nancy 11.9 12.2 Plt Count 221 216 MPV 8.9 L 8.6 L Albumin 3.8
[2024-01-09 17:22] LABS: BUN Creatinine Ratio 9.4 (10-20); Calcium 8.5 mg/dl (8.6-10.3); Creatinine Clr Calc Pharmacy 98.4 ml/min; Est GFR (African American) 109.8 ml/min; Est GFR (Non-African American) 94.7 ml/min
[2024-01-09] MEDS: ATORVASTATIN 10 MG TAB PO SCH (21:49)
[2024-01-09] MEDS: LOSARTAN POTASSIUM 25 MG TAB PO SCH (21:49)
[2024-01-09] MEDS: guanFACINE HCL 1 MG TAB PO SCH (21:49)
[2024-01-09] MEDS: DULoxetine HCL 60 MG CAP PO SCH (21:51)
[2024-01-09 23:36] LABS: BUN Creatinine Ratio 11.3 (10-20); Creatinine Clr Calc Pharmacy 86.3 ml/min; Est GFR (African American) 97.9 ml/min; Est GFR (Non-African American) 84.5 ml/min
--- NOTE | 2024-01-10 06:25 | Electrocardiogram Report ---
Test Reason : Blood Pressure : / mmHG Vent. Rate : 058 BPM Atrial Rate : 058 BPM P-R Int : 210 ms QRS Dur : 078 ms QT Int : 404 ms P-R-T Axes : 054 019 047 degrees QTc Int : 396 ms Sinus bradycardia with 1st degree A-V block Otherwise normal ECG No previous ECGs available Confirmed by Satya Coyle ([id number]) on 01/10/2024 6:24:57 AM Referred By: REFERRED SELF Confirmed By:Satya Coyle
[2024-01-10 07:06] LABS: Hematocrit (blood only) 36.2 % (42.0-52.0); Hemoglobin 12.9 g/dl (14.0-18.0); Mean Corpuscular Hemoglobin 32.8 pg (25.0-34.0); Mean Corpuscular Hgb Conc 35.6 g/dL (32.0-36.0); Mean Corpuscular Volume 92.1 fL (80.0-100.0); Mean Platelet Volume 9.1 fL (9.4-12.4); Platelet Count 244 K/uL (130-400); RDW Coefficient of Variation 12.2 % (11.5-14.5); RDW Standard Deviation 41.5 fL (36.4-46.3); Red Blood Count 3.93 M/uL (4.70-6.10); White Blood Count 7.46 K/ul (4.8-10.8)
[2024-01-10 07:32] LABS: Anion Gap 2 (3-11); BUN Creatinine Ratio 16.7 (10-20); Blood Urea Nitrogen 13 mg/dl (6-23); Calcium 8.8 mg/dl (8.6-10.3); Carbon Dioxide 32 mmol/L (21-32); Chloride 99 mmol/L (98-107); Creatinine Clr Calc Pharmacy 107.3 ml/min; Est GFR (African American) 113.7 ml/min; Est GFR (Non-African American) 98.1 ml/min; Glucose 102 mg/dl (70-99(Fasting)); Phosphorus 2.4 mg/dl (2.5-4.9); Sodium 133 mmol/L (136-145)
[2024-01-10] MEDS: COUGH DROP (SUGAR FREE) LOZ 24 LOZ/1 BOX BUCCAL SCH (14:54)
--- NOTE | 2024-01-10 15:00 | Discharge Summary ---
Date of Service January 10, 2024 Admission HPI Per Admitting Provider 58-year-old male with past medical history significant for hyperlipidemia, hypertension, depression, back pain, history of opiate use withdrawal, history of intermittent asthma GERD, anxiety disorder coming from [facility] because of hyponatremia. Patient states he had hyponatremia about 4 times in about last couple of years. States his psych meds were adjusted and at one point of time was on salt tablets.. Last 2 weeks he is feeling weak and fatigued not able to think straight and decreased concentration which are his usual symptoms for hyponatremia. Appetite is okay. No nausea vomiting. No diarrhea or co nstipation. Denies any headache. No dizziness. Vision is okay. No earache or runny nose or sore throat. No cough. No fevers. No chest pain or shortness of breath. No abdominal pain. Normal bowel and bladder movements. Currently resting comfortably and hemodynamically stable. Past medical history as mentioned above Past surgical history. He has no surgeries. He has a plate in his right hand. Social history. Smokes about a pack a day. No alcohol. 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 Family history. Father and mother had depression. Father had multiple back surgeries. Admission Exam Per Admitting Provider General- Not in distress. Head- atraumatic Eyes- PERRL. ENT- oropharynx clear Neck- supple, no JVD. Lungs- clear to auscultation no wheezing or crackles. Heart- regular rhythm; no murmur, no gallop. Abdomen- normal bowel sounds, soft, nontender, no distension. Extremities- no pretibial edema, no erythema seen. Neuro- alert, oriented PERRL, no facial palsy; no dysarthria; moves extremities. Skin- warm & dry Principal Diagnosis Hyponatremia due to SIADH Discharge Exam General- WD/WN M in NAD Head- atraumatic Eyes- PERRL. ENT- oropharynx clear Neck- supple, no JVD. Lungs- clear to auscultation no wheezing or crackles. Heart- regular rhythm; no murmur, no gallop. Abdomen- normal bowel sounds, soft, nontender, no distension. Extremities- no pretibial edema, no erythema seen. Neuro- alert, oriented PERRL, no facial palsy; no dysarthria; moves extremities. Skin- warm & dry Discharge Data Allergies Allergy/AdvReac Type Severity Reaction Status Date / Time No Known Allergies Allergy Unverified 01/09/24 01:21 Consultations 01/08/24 22:17 ED Decision to Admit Stat 01/09/24 08:00 Consult Nephrology Routine Ordered Studies 01/08/24 20:45 CT angio head wo/w Stat FINDINGS: VASCULATURE: Right internal carotid artery: No acute findings. Intracranial segment is patent with no significant stenosis. No aneurysm. Right anterior cerebral artery: Unremarkable. No occlusion or significant stenosis. No aneurysm. Right middle cerebral artery: Unremarkable. No occlusion or significant stenosis. No aneurysm. Right posterior cerebral artery: Unremarkable. No occlusion or significant stenosis. No aneurysm. Right vertebral artery: Unremarkable as visualized. Left internal carotid artery: Mild atherosclerosis of the intracranial portion of the left internal carotid artery without significant stenosis. No aneurysm. Left anterior cerebral artery: Unremarkable. No occlusion or significant stenosis. No aneurysm. Left middle cerebral artery: Unremarkable. No occlusion or significant stenosis. No aneurysm. Left posterior cerebral artery: Unremarkable. No occlusion or significant stenosis. No aneurysm. Left vertebral artery: Unremarkable as visualized. Basilar artery: Unremarkable. No occlusion or significant stenosis. No aneurysm. HEAD: Brain: No intracranial hemorrhage, mass-effect or midline shift. No abnormal extra axial fluid. No evidence of acute infarct. Mild periventricular white matter hypodensities are most consistent with chronic microangiopathy. Ventricles: Unremarkable. No ventriculomegaly. Bones/joints: No acute fracture. Soft tissues: Unremarkable. Sinuses: Unremarkable as visualized. No acute sinusitis. Mastoid air cells: Unremarkable as visualized. No mastoid effusion. IMPRESSION: 1. No acute intracranial finding. 2. No acute finding of the arteries of the head. Hospital Course (1) Acute hyponatremia: 58 yo M with past medical history significant for hyperlipidemia, hypertension, depression, back pain, history of opiate use withdrawal, history of intermittent asthma GERD, anxiety disorder coming from [facility] because of hyponatremia. Patient states he had hyponatremia up to 4 times in about last couple of years. States his psych meds were adjusted and at 1 point of time on salt tablets.. Last 2 weeks he is feeling weak and fatigued not able to think straight and decreased concentration which are his usual symptoms for hyponatremia. Appetite is okay. No nausea vomiting. No diarrhea or constipation. Denies any headache. No dizziness. Vision is okay. No earache or runny nose or sore throat. No cough. No fevers. No chest pain or shortness of breath. No abdominal pain. Normal bowel and bladder movements. Currently resting comfortably and hemodynamically stable. 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 Admission sodium was 126. Urine osmolality was 236 and urine sodium of 60. Patient is on duloxetine and divalproex both of which can cause SIADH. Patient also endorsed high fluid intake well over 100 ounces daily. Sodium is improved with fluid restriction. From renal standpoint patient can be discharged with the fluid limit of 1.5 L daily. Patient is agreeable to follow the fluid limit. He can have repeat sodium in a week and follow-up with his outpatient neurologist / psychiatry at [facility] Depression Anxiety Psychiatric illness Continue current medications Hypertension On propranolol and losartan Will monitor Hyperlipidemia On statin Total Time Total Time Spent Total Time Spent (In Minutes): 40 Discharge Plan Discharge Items [facility]position[facility] Reason For Visit: HYPONATREMIA Discharge Diagnosis: Hyponatremia due to SIADH Activity: Per Instructions section Non-emergency contact: Primary Care Provider, Acid Cutter and Psychiatrist Call non-emergency contact if: you have any medication questions and your symptoms worsen Follow-up/Referrals: Modesta QUINTEROS [Primary Care Provider] - Diet: Heart Healthy Fluids: 1500ml (6 cups) Addtl Attending Provider Instructions: Follow up with your primary care doctor and psychiatrist. Recommend to repeat blood work - BMP - in 1 week. Recommend fluid restriction - 1.5 L a day. To help with fluid restriction - recommend using lozenges prn and biotene mouth wash to prevent dry mouth. Pending Studies at Discharge: No Stand-Alone Forms: [facility] Skilled Items Patient informed of condition?: Yes Discharge Level of Care: Other Communicable Disease: No Discharge Prognosis: Stable Lines: None Urinary Catheter: No Medications and DC Order Prescriptions: Continued atorvastatin 10 mg Tablet 10 mg PO HS hydroxyzine pamoate 50 mg Capsule 50 mg PO DAILY hydroxyzine pamoate 50 mg Capsule 100 mg PO HS oxcarbazepine 300 mg Tablet 300 mg PO BID divalproex 500 mg Tablet,Delayed Release (Dr/Ec) 1,000 mg PO BID propranolol 40 mg Tablet 40 mg PO HS famotidine 20 mg Tablet 20 mg PO DAILY cyanocobalamin (vitamin B-12) [Vitamin B-12] 500 mcg Tablet 500 mcg PO DAILY levothyroxine [Levothroid] 50 mcg Tablet 50 mcg PO DAILY losartan 25 mg Tablet 25 mg PO QPM guanfacine 1 mg Tablet 1 mg PO HS propranolol 20 mg Tablet 20 mg PO QAM oxybutynin chloride 5 mg Tablet 5 mg PO BID duloxetine 30 mg Capsule,Delayed Release(Dr/Ec) 30 mg PO QAM duloxetine 60 mg Capsule,Delayed Release(Dr/Ec) 60 mg PO QPM Vivitrol 380 mg Suspension,Extended Rel Recon 380 mg IM .[id number] omeprazole 20 mg Tablet,Delayed Release (Dr/Ec) 20 mg PO DAILY Discharge Orders: Discharge Order (Routine); Ordered 01/10/24 Ordered By: Lopez Zhu Admission Data Admit Date/Time: 01/09/24 02:01 Attending Provider: Lopez Zhu Admit Provider: Valdemar Covington Primary Care Provider: Modesta QUINTEROS Other Providers: Valdemar Covington
== END 2024-01-10 16:30 | DRG 645 ==
LOC: ED 19:57 → EDINP 01-09 02:01

== ENCOUNTER 2024-08-04 19:51 | Observation (INO) ==
[2024-08-04 20:38] LABS: Basophils # (auto) 0.04 K/uL (0.00-0.20); Basophils % (auto) 0.5 %; Eosinophils # (auto) 0.08 K/uL (0.00-0.50); Eosinophils % (auto) 0.9 %; Hematocrit (blood only) 34.8 % (42.0-52.0); Hemoglobin 12.2 g/dl (14.0-18.0); Immature Granulocytes # (auto) 0.12 K/uL (0.01-0.20); Immature Granulocytes % (auto) 1.4 %; Lymphocytes # (auto) 3.53 K/uL (1.20-3.40); Lymphocytes % (auto) 41.2 %; Mean Corpuscular Hemoglobin 33.2 pg (25.0-34.0); Mean Corpuscular Hgb Conc 35.1 g/dL (32.0-36.0); Mean Corpuscular Volume 94.8 fL (80.0-100.0); Mean Platelet Volume 9.2 fL (9.4-12.4); Monocytes # (auto) 1.02 K/uL (0.11-0.59); Monocytes % (auto) 11.9 %; Neutrophils # (auto) 3.77 K/uL (1.40-6.50); Neutrophils % (auto) 44.1 %; Platelet Count 234 K/uL (130-400); RDW Coefficient of Variation 13.2 % (11.5-14.5); RDW Standard Deviation 46.2 fL (36.4-46.3); Red Blood Count 3.67 M/uL (4.70-6.10); White Blood Count 8.56 K/ul (4.8-10.8)
[2024-08-04 20:55] LABS: Albumin Globulin Ratio 1.3 (0.9-2); Albumin Level 3.8 gm/dl (3.4-5.0); BUN Creatinine Ratio 18.7 (10-20); Bilirubin,Total 0.3 mg/dl (0.2-1.0); Calcium 9.3 mg/dl (8.6-10.3); Creatinine Clr Calc Pharmacy 110.2 ml/min; Est GFR (African American) 114.8 ml/min; Potassium 4.1 mmol/L (3.5-5.1); Total Protein 6.8 gm/dl (6.0-8.3)
[2024-08-04 21:27] LABS: Appearance Urine Clear (Clear); Bilirubin Urine Negative (Negative); Blood Urine Negative (Negative); Color Urine Yellow; Glucose Urine UA Negative (Negative); Ketones Urine Negative (Negative); Leukocyte Esterase Urine Negative (Negative); Nitrite Urine Negative (Negative); Protein Urine Negative (Negative); Specific Gravity Urine 1.009 (1.000-1.030); Urobilinogen Urine Negative (Negative)
[2024-08-04] MEDS: SODIUM CHLORIDE 0.9% 1,000 ML IV ONE (22:02)
[2024-08-04] MEDS: diphenhydrAMINE 50 MG/ML VIAL IV STA (22:02)
[2024-08-04] MEDS: METOCLOPRAMIDE HCL INJ 5 MG/ML 2 ML VIAL IV STA (22:02)
[2024-08-04 22:04] LABS: Magnesium 1.4 mg/dl (1.7-2.4)
[2024-08-04 22:11] LABS: Troponin I High Sensitivity 2.5 pg/ml (0-20)
[2024-08-04] MEDS: OPTIRAY 320 125ml IV ONE (22:15)
[2024-08-04 22:44] LABS: Amphetamines+Metham, Urine Neg (Neg); Barbiturates, Urine Neg (Neg); Benzodiazepine, Urine Neg (Neg); Cocaine, Urine Neg (Neg); Fentanyl, Urine Neg (Neg); MDMA (Ecstacy), Urine Neg (Neg); Marijuana, Urine Neg (Neg); Methadone, Urine Neg (Neg); Opiate, Urine Neg (Neg); Phencyclidine, Urine Neg (Neg)
--- NOTE | 2024-08-05 00:20 | CT Scan Report ---
Exam(s): CT HEAD Without Contrast EXAM: CT Head Without Intravenous Contrast CLINICAL HISTORY: Reason for exam: neuro deficit, acute stroke suspected. TECHNIQUE: Axial computed tomography images of the head/brain without intravenous contrast. CTDI is 36.55 mGy and DLP is 624.41 mGy-cm. Automated exposure control was utilized for the study. A dose lowering technique was utilized adhering to the principles of ALARA. COMPARISON: No relevant prior studies available. FINDINGS: Brain: Unremarkable. No hemorrhage. No significant white matter disease. No edema. Ventricles: Mild ventriculomegaly. Bones/joints: Unremarkable. No acute fracture. Soft tissues: Unremarkable. Sinuses: Unremarkable as visualized. No acute sinusitis. Mastoid air cells: Unremarkable as visualized. No mastoid effusion. IMPRESSION: No evidence of acute intracranial pathology. Electronically signed by: Sheri Holbrook MD 08/05/24 00:19 AM
--- NOTE | 2024-08-05 00:24 | CT Scan Report ---
Exam(s): CTA HEAD With Contrast IV Amt: 119 cc opti 320 EXAM: CT Angiography Head With Intravenous Contrast CLINICAL HISTORY: Reason for exam: neuro deficit, acute stroke suspected. TECHNIQUE: Axial computed tomographic angiography images of the head with intravenous contrast. CTDI is 20.76 mGy and DLP is 1139.68 mGy-cm. Automated exposure control was utilized for the study. A dose lowering technique was utilized adhering to the principles of ALARA. MIP reconstructed images were created and reviewed. CONTRAST: Patient received 119 cc opti 320 of IV contrast COMPARISON: No relevant prior studies available. FINDINGS: The dural venous sinuses are patent. Right internal carotid artery: No acute findings. Intracranial segment is patent with no significant stenosis. No aneurysm. Right anterior cerebral artery: Unremarkable. No occlusion or significant stenosis. No aneurysm. Right middle cerebral artery: Unremarkable. No occlusion or significant stenosis. No aneurysm. Right posterior cerebral artery: Unremarkable. No occlusion or significant stenosis. No aneurysm. Right vertebral artery: Unremarkable as visualized. Left internal carotid artery: No acute findings. Intracranial segment is patent with no significant stenosis. No aneurysm. Left anterior cerebral artery: Unremarkable. No occlusion or significant stenosis. No aneurysm. Left middle cerebral artery: Unremarkable. No occlusion or significant stenosis. No aneurysm. Left posterior cerebral artery: Unremarkable. No occlusion or significant stenosis. No aneurysm. Left vertebral artery: Unremarkable as visualized. Basilar artery: Unremarkable. No occlusion or significant stenosis. No aneurysm. IMPRESSION: Negative CT angiogram of the head. Electronically signed by: Sheri Holbrook MD 08/05/24 00:23 AM
--- NOTE | 2024-08-05 00:26 | CT Scan Report ---
Exam(s): CTA NECK With Contrast IV Amt: 119 cc opti 320 EXAM: CT Angiography Neck With Intravenous Contrast CLINICAL HISTORY: Reason for exam: neuro deficit, acute stroke suspected. TECHNIQUE: Routine carotid CT angiography protocol was performed with intravenous contrast. NASCET criteria using the distal ICAs for comparison were used for evaluation of stenoses. CTDI is 20.76 mGy and DLP is 1139.68 mGy-cm. Automated exposure control was utilized for the study. A dose lowering technique was utilized adhering to the principles of ALARA. MIP reconstructed images were created and reviewed. CONTRAST: Patient received 119 cc opti 320 of IV contrast COMPARISON: None. FINDINGS: VASCULATURE: Right common carotid artery: Unremarkable. No occlusion or significant stenosis. No dissection. Right internal carotid artery: Unremarkable. Extracranial segment is patent with no occlusion or significant stenosis. No dissection. Right external carotid artery: Unremarkable. No occlusion. Right vertebral artery: Unremarkable. No occlusion or significant stenosis. No dissection. Left common carotid artery: Unremarkable. No occlusion or significant stenosis. No dissection. Left internal carotid artery: Unremarkable. Extracranial segment is patent with no occlusion or significant stenosis. No dissection. Left external carotid artery: Unremarkable. No occlusion. Left vertebral artery: Unremarkable. No occlusion or significant stenosis. No dissection. NECK: Bones/joints: Unremarkable. No acute fracture. Soft tissues: Unremarkable. Lung apices: Clear. CAROTID STENOSIS REFERENCE USING NASCET CRITERIA: % ICA stenosis = (1 - narrowest ICA diameter/diameter of distal cervical ICA) x 100. Mild - <50% stenosis. Moderate - 50-69% stenosis. Severe - 70-94% stenosis. Near occlusion - 95-99% stenosis. Occluded - 100% stenosis. IMPRESSION: Negative CTA neck. Electronically signed by: Sheri Holbrook MD 08/05/24 00:25 AM
--- NOTE | 2024-08-05 00:57 | Emergency Department Note ---
History of Present Illness General Chief complaint: Confusion Stated complaint: CONFUSION, DIZZY, VERTIGO, SHAKY Time Seen by Provider: 08/04/24 21:26 History of Present Illness This 59-year-old presents presents ER complaining of dizziness not feeling right for the past few days steadily getting worse. Patient states he is too dizzy and cannot walk. Patient denies chest pain, dyspnea, fevers, vomiting, diarrhea, flulike illness. Home Medications Medication Instructions Recorded Confirmed Type albuterol sulfate 90 mcg/actuation 2 puff inhalation QID PRN 08/05/24 08/05/24 History aerosol inhaler (Proventil HFA) Shortness Of Breath Or Wheezing atorvastatin 10 mg PO HS 08/05/24 08/05/24 History cyanocobalamin (vitamin B-12) 500 500 mcg PO DAILY 08/05/24 08/05/24 History mcg tablet divalproex 500 mg tablet,delayed 1,000 mg PO BID 08/05/24 08/05/24 History release docusate sodium 100 mg capsule 250 mg PO DAILY 08/05/24 08/05/24 History (Colace) duloxetine 30 mg capsule,delayed 30 mg PO DAILYBB 08/05/24 08/05/24 History release (Cymbalta) duloxetine 60 mg capsule,delayed 60 mg PO HS 08/05/24 08/05/24 History release (Cymbalta) famotidine 20 mg tablet 20 mg PO DAILY 08/05/24 08/05/24 History guanfacine 2 mg tablet 2 mg PO HS 08/05/24 08/05/24 History hydroxyzine pamoate 50 mg capsule 50 mg PO HS 08/05/24 08/05/24 History levothyroxine 75 mcg tablet 75 mcg PO DAILY 08/05/24 08/05/24 History losartan 25 mg tablet 25 mg PO HS 08/05/24 08/05/24 History naltrexone microspheres 380 mg 380 mg IM DIRECTED 08/05/24 08/05/24 History intramuscular suspension,extended release (Vivitrol) omeprazole 20 mg capsule,delayed 20 mg PO DAILY 08/05/24 08/05/24 History release propranolol 20 mg tablet 20 mg PO UD 08/05/24 08/05/24 History tamsulosin 0.4 mg capsule (Flomax) 0.4 mg PO DAILY 08/05/24 08/05/24 History Allergies Allergy/AdvReac Type Severity Reaction Status Date / Time No Known Allergies Allergy Unverified 01/09/24 01:21 Past Med/Surg History Problem List (Updated 08/05/24 @ 00:59 by Juana Norris PA-C) Hypomagnesemia (Acute) Dizziness (Acute) Weakness (Acute) Acute hyponatremia (Acute) Social History Smoking Status: Former smoker Tobacco Type: E-cigarettes / Vaping Second Hand Exposure: No; Do You Dip or Chew Tobacco: No; Hx Alcohol Use: No Hx Substance Use: No Preferred Language: [place] Communication Ability: Effective Dining Car Steward Required: No Beliefs That Will Affect Care: None Current Living Situation: Other Current Living Situation Comment: [place] Feels Safe at Home: Yes Assistive Devices: None Review of Systems A total of 10 systems reviewed and were otherwise negative Physical Exam Vital Signs Vital Signs - 24 hr 08/04/24 19:53 08/04/24 22:33 08/04/24 22:39 Temperature 36.8 C Temperature Source Temporal Artery Scan Pulse Rate 79 62 61 Pulse Rate [Apical] Pulse Rate from SpO2 Sensor 60 Pulse Rhythm Regular Pulse Strength Normal Respiratory Rate 20 22 Respiratory Effort / Characteristics Non-Labored Spontaneous Respiratory Depth Normal Blood Pressure 155/99 H Blood Pressure [Right Arm] Blood Pressure Mean 117 Blood Pressure Mean [Right Arm] Pulse Oximetry 97 95 Oxygen Delivery Method Room Air Sepsis Recent Fever Within 48 Hours No Sepsis New/Unexplained Change in Mental Status N/A Sepsis Action Taken by Nursing No Action Required 08/04/24 22:41 08/04/24 22:41 08/04/24 22:51 Temperature Temperature Source Pulse Rate 62 Pulse Rate [Apical] 58 L Pulse Rate from SpO2 Sensor 62 Pulse Rhythm Pulse Strength Respiratory Rate 19 20 Respiratory Effort / Characteristics Respiratory Depth Blood Pressure Blood Pressure [Right Arm] 150/99 H Blood Pressure Mean Blood Pressure Mean [Right Arm] 116 Pulse Oximetry 95 96 Oxygen Delivery Method Room Air Room Air Sepsis Recent Fever Within 48 Hours Sepsis New/Unexplained Change in Mental Status Sepsis Action Taken by Nursing 08/04/24 23:00 08/04/24 23:00 08/04/24 23:00 Temperature Temperature Source Pulse Rate 58 L Pulse Rate [Apical] Pulse Rate from SpO2 Sensor 58 L Pulse Rhythm Pulse Strength Respiratory Rate 19 Respiratory Effort / Characteristics Respiratory Depth Blood Pressure 147/93 H 147/93 H Blood Pressure [Right Arm] Blood Pressure Mean 102 102 Blood Pressure Mean [Right Arm] Pulse Oximetry 94 Oxygen Delivery Method Sepsis Recent Fever Within 48 Hours Sepsis New/Unexplained Change in Mental Status Sepsis Action Taken by Nursing 08/04/24 23:24 08/04/24 23:30 08/04/24 23:51 Temperature Temperature Source Pulse Rate 58 L 61 57 L Pulse Rate [Apical] Pulse Rate from SpO2 Sensor 58 L 60 57 L Pulse Rhythm Pulse Strength Respiratory Rate 20 19 20 Respiratory Effort / Characteristics Respiratory Depth Blood Pressure Blood Pressure [Right Arm] Blood Pressure Mean Blood Pressure Mean [Right Arm] Pulse Oximetry 95 96 95 Oxygen Delivery Method Sepsis Recent Fever Within 48 Hours Sepsis New/Unexplained Change in Mental Status Sepsis Action Taken by Nursing 08/05/24 00:00 08/05/24 02:00 Temperature Temperature Source Pulse Rate Pulse Rate [Apical] Pulse Rate from SpO2 Sensor Pulse Rhythm Pulse Strength Respiratory Rate Respiratory Effort / Characteristics Non-Labored Non-Labored Respiratory Depth Normal Normal Blood Pressure Blood Pressure [Right Arm] Blood Pressure Mean Blood Pressure Mean [Right Arm] Pulse Oximetry Oxygen Delivery Method Sepsis Recent Fever Within 48 Hours Sepsis New/Unexplained Change in Mental Status Sepsis Action Taken by Nursing VITALS: Vitals are noted on the nurse's note and reviewed by myself. Vital signs stable. GENERAL: Male presents, in no acute distress, nondiaphoretic, well-developed well-nourished. SKIN: The skin was without rashes, erythema, edema, or bruising. There is no tenting of the skin. Capillary reflex less than 2 seconds. HEAD: Normocephalic atraumatic. EARS: External auditory canals clear EYES: Pupils equal round and reactive to light and accommodation. Conjunctivae without injection, sclerae without icterus. Extraocular movements intact. NOSE: Patent, no discharge. MOUTH: Mucous membranes moist. Pharynx without erythema or exudate. Uvula midline. Airway patent. Tongue does not deviate. NECK: Supple without nuchal rigidity. No lymphadenopathy. No thyromegaly. Cervical spine is nontender. No JVD. HEART: Regular rate and rhythm LUNGS: Clear to auscultation bilaterally without wheezes, rales or rhonchi. No retractions or accessory muscle use. ABDOMEN: Positive bowel sounds x 4. Normal tympanic percussion. Soft, nontender, without masses or organomegaly. Ford sign negative. No guarding or rebound tenderness. No CVA tenderness MUSCULOSKELETAL: No muscle atrophy, erythema, or edema noted. NEURO: Patient was alert and oriented to person place and time. Normal sensation to light and sharp touch. Cranial nerves II through XII grossly intact. No pronator drift. Cerebellar exam intact. No focal neurological deficits. Course Administered Medications Discontinued Medications Diphenhydramine HCl (Diphenhydramine 50 Mg/Ml Vial) 25 mg IV NOW STA Stop: 08/04/24 21:45 Last Admin: 08/04/24 22:02 Dose: 25 mg Documented By: LD Sodium Chloride (Nss) 1,000 mls @ 999 mls/hr IV .Q1H1M ONE Stop: 08/04/24 22:44 Last Infusion: 08/05/24 03:17 Dose: Infused Documented By: Admin: 08/04/24 22:02 Dose: 999 mls/hr Documented By: LD Magnesium Sulfate/Dextrose (Magnesium Sulfate / D5w) 1 gm in 100 mls @ 100 mls/hr IV Q1H NIMESH Stop: 08/05/24 02:57 Last Infusion: 08/05/24 03:17 Dose: Infused Documented By: Admin: 08/05/24 02:15 Dose: 100 mls/hr Documented By: Infusion: 08/05/24 02:06 Dose: Infused Documented By: Admin: 08/05/24 01:06 Dose: 100 mls/hr Documented By: FOREIGN Ioversol (Optiray 320 125ml) 119 ml IV ONCE ONE Stop: 08/04/24 22:16 Last Admin: 08/04/24 22:15 Dose: 119 ml Documented By: KELLEN Metoclopramide HCl (Metoclopramide Hcl Inj 5 Mg/Ml 2 Ml Vial) 10 mg IV NOW STA Stop: 08/04/24 21:45 Last Admin: 08/04/24 22:02 Dose: 10 mg Documented By: LD Medical Decision Making Medical Records Attestation: I reviewed the patient's medical records. Home Medications Current Medication List: was personally reviewed by il Laboratory Data Attestation: I reviewed the patient's lab results. 08/04/24 20:22 08/04/24 20:22 Lab Results 08/04/24 08/04/24 Range/Units 20:22 21:04 WBC 8.56 (4.8-10.8) K/ul RBC 3.67 L (4.70-6.10) M/uL Hgb 12.2 L (14.0-18.0) g/dl Hct 34.8 L (42.0-52.0) % MCV 94.8 (80.0-100.0) fL MCH 33.2 (25.0-34.0) pg MCHC 35.1 (32.0-36.0) g/dL RDW Std Deviation 46.2 (36.4-46.3) fL RDW Coeff of Nancy 13.2 (11.5-14.5) % Plt Count 234 (130-400) K/uL MPV 9.2 L (9.4-12.4) fL Immature Gran % (Auto) 1.4 % Neut % (Auto) 44.1 % Lymph % (Auto) 41.2 % [place] % (Auto) 11.9 % Eos % (Auto) 0.9 % Baso % (Auto) 0.5 % Neut # (Auto) 3.77 (1.40-6.50) K/uL Lymph # (Auto) 3.53 H (1.20-3.40) K/uL [place] # (Auto) 1.02 H (0.11-0.59) K/uL Eos # (Auto) 0.08 (0.00-0.50) K/uL Baso # (Auto) 0.04 (0.00-0.20) K/uL Immature Gran # (Auto) 0.12 (0.01-0.20) K/uL Sodium 135 L (136-145) mmol/L Potassium 4.1 (3.5-5.1) mmol/L Chloride 99 (98-107) mmol/L Carbon Dioxide 31 (21-32) mmol/L Anion Gap 5 (3-11) BUN 14 (6-23) mg/dl Creatinine 0.75 (0.6-1.4) mg/dl Est Cr Clr Drug Dosing 110.2 ml/min Est GFR ( Amer) 114.8 ml/min Est GFR (Non-Af Amer) 99.0 ml/min BUN/Creatinine Ratio 18.7 (10-20) Glucose 124 H (70-99(Fasting)) mg/dl Calcium 9.3 (8.6-10.3) mg/dl Magnesium 1.4 L (1.7-2.4) mg/dl Total Bilirubin 0.3 (0.2-1.0) mg/dl AST 14 (13-39) U/L ALT 13 (7-52) U/L Alkaline Phosphatase 64 (34-104) U/L Troponin I High Sens 2.5 (0-20) pg/ml Total Protein 6.8 (6.0-8.3) gm/dl Albumin 3.8 (3.4-5.0) gm/dl Globulin 3.0 (2.5-4.0) gm/dl Albumin/Globulin Ratio 1.3 (0.9-2) Urine Color Yellow Urine Appearance Clear (Clear) Urine pH 8.0 H (4.5-7.5) Ur Specific [place] 1.009 (1.000-1.030) Urine Protein Negative (Negative) Urine Glucose (UA) Negative (Negative) Urine Ketones Negative (Negative) Urine Blood Negative (Negative) Urine Nitrite Negative (Negative) Urine Bilirubin Negative (Negative) Urine Urobilinogen Negative (Negative) Ur Leukocyte Esterase Negative (Negative) Urine Opiates Screen Neg (Neg) Ur Methadone, Qual Neg (Neg) Urine Fentanyl Screen Neg (Neg) Urine Barbiturates Neg (Neg) Ur Phencyclidine (PCP) Neg (Neg) U Amphetamin/Meth Scrn Neg (Neg) MDMA (Ecstasy) Screen Neg (Neg) U Benzodiazepines Scrn Neg (Neg) Ur Cocaine Metabolite Neg (Neg) U Marijuana (THC) Screen Neg (Neg) Imaging Data Attestation: I personally reviewed and interpreted this imaging study as follows: Radiologist's Impression: Head CT 08/04/24 21:44 Exam(s): CT HEAD Without Contrast EXAM: CT Head Without Intravenous Contrast CLINICAL HISTORY: Reason for exam: neuro deficit, acute stroke suspected. TECHNIQUE: Axial computed tomography images of the head/brain without intravenous contrast. CTDI is 36.55 mGy and DLP is 624.41 mGy-cm. Automated exposure control was utilized for the study. A dose lowering technique was utilized adhering to the principles of ALARA. COMPARISON: No relevant prior studies available. FINDINGS: Brain: Unremarkable. No hemorrhage. No significant white matter disease. No edema. Ventricles: Mild ventriculomegaly. Bones/joints: Unremarkable. No acute fracture. Soft tissues: Unremarkable. Sinuses: Unremarkable as visualized. No acute sinusitis. Mastoid air cells: Unremarkable as visualized. No mastoid effusion. IMPRESSION: No evidence of acute intracranial pathology. Electronically signed by: Sheri Holbrook MD 08/05/24 00:19 AM Head CTA 08/04/24 21:44 Exam(s): CTA HEAD With Contrast IV Amt: 119 cc opti 320 EXAM: CT Angiography Head With Intravenous Contrast CLINICAL HISTORY: Reason for exam: neuro deficit, acute stroke suspected. TECHNIQUE: Axial computed tomographic angiography images of the head with intravenous contrast. CTDI is 20.76 mGy and DLP is 1139.68 mGy-cm. Automated exposure control was utilized for the study. A dose lowering technique was utilized adhering to the principles of ALARA. MIP reconstructed images were created and reviewed. CONTRAST: Patient received 119 cc opti 320 of IV contrast COMPARISON: No relevant prior studies available. FINDINGS: The dural venous sinuses are patent. Right internal carotid artery: No acute findings. Intracranial segment is patent with no significant stenosis. No aneurysm. Right anterior cerebral artery: Unremarkable. No occlusion or significant stenosis. No aneurysm. Right middle cerebral artery: Unremarkable. No occlusion or significant stenosis. No aneurysm. Right posterior cerebral artery: Unremarkable. No occlusion or significant stenosis. No aneurysm. Right vertebral artery: Unremarkable as visualized. Left internal carotid artery: No acute findings. Intracranial segment is patent with no significant stenosis. No aneurysm. Left anterior cerebral artery: Unremarkable. No occlusion or significant stenosis. No aneurysm. Left middle cerebral artery: Unremarkable. No occlusion or significant stenosis. No aneurysm. Left posterior cerebral artery: Unremarkable. No occlusion or significant stenosis. No aneurysm. Left vertebral artery: Unremarkable as visualized. Basilar artery: Unremarkable. No occlusion or significant stenosis. No aneurysm. IMPRESSION: Negative CT angiogram of the head. Electronically signed by: Sheri Holbrook MD 08/05/24 00:23 AM Neck CTA 08/04/24 21:44 Exam(s): CTA NECK With Contrast IV Amt: 119 cc opti 320 EXAM: CT Angiography Neck With Intravenous Contrast CLINICAL HISTORY: Reason for exam: neuro deficit, acute stroke suspected. TECHNIQUE: Routine carotid CT angiography protocol was performed with intravenous contrast. NASCET criteria using the distal ICAs for comparison were used for evaluation of stenoses. CTDI is 20.76 mGy and DLP is 1139.68 mGy-cm. Automated exposure control was utilized for the study. A dose lowering technique was utilized adhering to the principles of ALARA. MIP reconstructed images were created and reviewed. CONTRAST: Patient received 119 cc opti 320 of IV contrast COMPARISON: None. FINDINGS: VASCULATURE: Right common carotid artery: Unremarkable. No occlusion or significant stenosis. No dissection. Right internal carotid artery: Unremarkable. Extracranial segment is patent with no occlusion or significant stenosis. No dissection. Right external carotid artery: Unremarkable. No occlusion. Right vertebral artery: Unremarkable. No occlusion or significant stenosis. No dissection. Left common carotid artery: Unremarkable. No occlusion or significant stenosis. No dissection. Left internal carotid artery: Unremarkable. Extracranial segment is patent with no occlusion or significant stenosis. No dissection. Left external carotid artery: Unremarkable. No occlusion. Left vertebral artery: Unremarkable. No occlusion or significant stenosis. No dissection. NECK: Bones/joints: Unremarkable. No acute fracture. Soft tissues: Unremarkable. Lung apices: Clear. CAROTID STENOSIS REFERENCE USING NASCET CRITERIA: % ICA stenosis = (1 - narrowest ICA diameter/diameter of distal cervical ICA) x 100. Mild - <50% stenosis. Moderate - 50-69% stenosis. Severe - 70-94% stenosis. Near occlusion - 95-99% stenosis. Occluded - 100% stenosis. IMPRESSION: Negative CTA neck. Electronically signed by: Sheri Holbrook MD 08/05/24 00:25 AM MDM Narrative Prior records/ancillary studies reviewed. Triage Nursing notes reviewed. The patient's history was concerning for dizziness and vertigo. Differential diagnosis: Etiologies such as benign positional vertigo, dehydration, hypovolemia, anemia, tumor, infection, hypoglycemia, electrolyte abnormalities, cardiac sources, intracerebral event, toxicologic, neurologic, as well as others were entertained. Physical examination: As above. No pathologic nystagmus. ER treatment provided: An order was placed for continuous cardiac monitoring. The monitor shows a rate of 60-100 with a sinus rhythm per my interpretation. IV hydration with normal saline, 1000 ml. Reglan and Benadryl, magnesium On reassessment the patient felt well. Diagnostics interpretation by me: ECG: Ordered for dizziness ECG: Normal sinus, normal intervals, no acute ST-T wave changes. Impression sinus bradycardia 55 independent interpreted by myself The labs Independently Interpreted by myself revealed no worrisome leukocytosis, low magnesium this was replaced CTs were reviewed and read by radiology as above. No acute occlusion Chest x-ray with no acute consolidation, pneumothorax or free air per my independent interpretation Consultation: A consultation was placed with the hospitalist. The case was discussed and diagnostics were reviewed. The patient was evaluated in the ER for further treatment. Exam and history seem consistent with dizziness. Patient was unsteady with his gait. Medicine was consulted case discussed. He will be mated for further evaluation and workup. Patient is agreeable. By the evaluation outlined above emergent etiologies such as infection, hypoglycemia, electrolyte abnormalities, cardiac sources, toxicologic, as well as others were deemed relatively unlikely. The pt informed about the findings as listed above. All questions were answered and pleased with the treatment. The chart was completed utilizing [employer] Speech voice recognition software. Grammatical errors, random word insertions, pronoun errors, and incomplete sentences are an occassional consequence of this system due to software limitations, ambient noise, and hardware issues. Any formal questions or concerns about the content, text, or information contained within the body of this dictation should be directly addressed to the physician nurse's assistant for clarification. Impression & Plan Dizziness, Hypomagnesemia Discharge Plan Visit Data Chief Complaint: Confusion Stated Complaint: CONFUSION, DIZZY, VERTIGO, SHAKY ED Provider: Luis Jimenez ED Midlevel Provider: Juana Norris Discharge Problem: Dizziness, Hypomagnesemia Patient Disposition: Admitted As Inpatient Condition: Good Discharge Instructions Interventions: ED Discharge Assessment Last Done: 08/05/24 03:15
[2024-08-05] MEDS: MAGNESIUM SULFATE / D5W 1 GM/100 ML BAG IV SCH (01:06)
--- NOTE | 2024-08-05 02:52 | History & Physical Report ---
Date of Service August 05, 2024 Assessment & Plan (1) Dizziness: Plan: 59[facility]-old [facility] with past medical history significant for hyperlipidemia, hypertension, depression, back pain, history of opiate use withdrawal, history of intermittent asthma, GERD, anxiety disorder comes because of imbalance and dizziness going on for last 2 to 3 days. Patient states he is feeling dizzy and not able to walk straight for last 2 3 days. Thinks he is somewhat disoriented and could not think straight. Denies any headache. Vision is okay. No runny nose or sore throat or cough. He says last week he had couple of days of fever but got resolved. Had sore throat last week. Appetite is okay. Denies any chest pain or shortness of breath. Has some nausea. No abdominal pain. Normal bladder movements. Constipated. Had a normal bowel movement yesterday. Currently resting comfortably and hemodynamically stable. Dizziness and imbalance CT head, CTA head and neck unremarkable Will follow MRI head Stroke protocol Neurology consult in a.m. for further recommendations Depression Anxiety Psychiatric illness Continue home medications Hypothyroidism On Synthyroid GERD On omeprazole BPH on Flomax History of asthma Albuterol as needed History of hyponatremia Last admission was recommended fluid restriction Patient states that he is not following fluid restriction Sodium is 135 today Follow labs Hypertension On losartan Will monitor Hyperlipidemia On statin Hypomagnesia Replaced Follow labs DVT prophylaxis SCDs for now Disposition Telemetry Full code. History of Present Illness Chief Complaint: Dizziness and imbalance Primary Care Provider: NELI Byers 59-year-old male [facility] with past medical history significant for hyperlipidemia, hypertension, depression, back pain, history of opiate use withdrawal, history of intermittent asthma, GERD, anxiety disorder comes because of imbalance and dizziness going on for last 2 to 3 days. Patient states he is feeling dizzy and not able to walk straight for last 2 -3 days. Thinks he is somewhat disoriented and could not think straight. Denies any headache. Vision is okay. No runny nose or sore throat or cough. He says last week he had couple of days of fever but got resolved. Had sore throat last week. Appetite is okay. Denies any chest pain or shortness of breath. Has some nausea. No abdominal pain. Normal bladder movements. Constipated. Had a normal bowel movement yesterday. Currently resting comfortably and hemodynamically stable. Past medical history as mentioned above Past surgical history. He has no surgeries. He has a plate in his right hand. Social history. Smokes about a pack a day. No alcohol. 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 Family history. Father and mother had depression. Father had multiple back surgeries. Allergies Allergy/AdvReac Type Severity Reaction Status Date / Time No Known Allergies Allergy Unverified 01/09/24 01:21 Home Medications Medication Instructions Recorded Confirmed Type albuterol sulfate 90 mcg/actuation 2 puff inhalation QID PRN 08/05/24 08/05/24 History aerosol inhaler (Proventil HFA) Shortness Of Breath Or Wheezing atorvastatin 10 mg PO HS 08/05/24 08/05/24 History cyanocobalamin (vitamin B-12) 500 500 mcg PO DAILY 08/05/24 08/05/24 History mcg tablet divalproex 500 mg tablet,delayed 1,000 mg PO BID 08/05/24 08/05/24 History release docusate sodium 100 mg capsule 250 mg PO DAILY 08/05/24 08/05/24 History (Colace) duloxetine 30 mg capsule,delayed 30 mg PO DAILYBB 08/05/24 08/05/24 History release (Cymbalta) duloxetine 60 mg capsule,delayed 60 mg PO HS 08/05/24 08/05/24 History release (Cymbalta) famotidine 20 mg tablet 20 mg PO DAILY 08/05/24 08/05/24 History guanfacine 2 mg tablet 2 mg PO HS 08/05/24 08/05/24 History hydroxyzine pamoate 50 mg capsule 50 mg PO HS 08/05/24 08/05/24 History levothyroxine 75 mcg tablet 75 mcg PO DAILY 08/05/24 08/05/24 History losartan 25 mg tablet 25 mg PO HS 08/05/24 08/05/24 History naltrexone microspheres 380 mg 380 mg IM DIRECTED 08/05/24 08/05/24 History intramuscular suspension,extended release (Vivitrol) omeprazole 20 mg capsule,delayed 20 mg PO DAILY 08/05/24 08/05/24 History release propranolol 20 mg tablet 20 mg PO UD 08/05/24 08/05/24 History tamsulosin 0.4 mg capsule (Flomax) 0.4 mg PO DAILY 08/05/24 08/05/24 History Past Med/Surg History Problem List (Updated 08/05/24 @ 00:59 by Juana Norris PA-C) Hypomagnesemia (Acute) Dizziness (Acute) Weakness (Acute) Acute hyponatremia (Acute) Social History Smoking Status: Current some day smoker Tobacco Type: Cigarettes Second Hand Exposure: No; Do You Dip or Chew Tobacco: No; Hx Alcohol Use: No Hx Substance Use: No Preferred Language: [place]an Communication Ability: Effective 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 Head- atraumatic Eyes- PERRL. ENT- oropharynx clear Neck- supple, no JVD. Lungs- clear to auscultation no wheezing or crackles Heart- regular rate and rhythm; no murmur, no gallop. Abdomen- normal bowel sounds, soft, nontender, no distension Extremities- no pretibial edema, no erythema seen Neuro- alert, oriented x 3; PERRL, no facial palsy; no dysarthria; motor 5/5 bilaterally; normal coordination of movements. sensations and positions sense intact. Skin- warm & dry Results & Data Results & Data Vital Signs (Past 12 Hours) Vital Signs Temp Pulse Pulse Resp BP BP Pulse Ox 08/04/24 23:51 57 L 20 95 08/04/24 23:30 61 19 96 08/04/24 23:24 58 L 20 95 08/04/24 23:00 147/93 H 08/04/24 23:00 147/93 H 08/04/24 23:00 58 L 19 94 08/04/24 22:51 62 20 96 08/04/24 22:41 58 L 19 150/99 H 95 08/04/24 22:41 08/04/24 22:39 61 22 95 08/04/24 22:33 62 08/04/24 19:53 36.8 C 79 20 155/99 H 97 O2 Del Method 08/04/24 23:51 08/04/24 23:30 08/04/24 23:24 08/04/24 23:00 08/04/24 23:00 08/04/24 23:00 08/04/24 22:51 08/04/24 22:41 Room Air 08/04/24 22:41 Room Air 08/04/24 22:39 08/04/24 22:33 08/04/24 19:53 Room Air Diagnostic Findings Laboratory Results WBC 8.56 K/ul (4.8-10.8) 08/04/24 20:22 RBC 3.67 M/uL (4.70-6.10) L 08/04/24 20:22 Hgb 12.2 g/dl (14.0-18.0) L 08/04/24 20: Hct 34.8 % (42.0-52.0) L 08/04/24 20:22 MCV 94.8 fL (80.0-100.0) 08/04/24 20:22 MCH 33.2 pg (25.0-34.0) 08/04/24 20:22 MCHC 35.1 g/dL (32.0-36.0) 08/04/24 20:22 RDW Std Deviation 46.2 fL (36.4-46.3) 08/04/24 20: RDW Coeff of Nancy 13.2 % (11.5-14.5) 08/04/24 20:22 Plt Count 234 K/uL (130-400) 08/04/24 20:22 MPV 9.2 fL (9.4-12.4) L 08/04/24 20:22 Immature Gran % (Auto) 1.4 % 08/04/24 20:22 Neut % (Auto) 44.1 % 08/04/24 20:22 Lymph % (Auto) 41.2 % 08/04/24 20:22 Cavalier % (Auto) 11.9 % 08/04/24 20:22 Eos % (Auto) 0.9 % 08/04/24 20:22 Baso % (Auto) 0.5 % 08/04/24 20:22 Neut # (Auto) 3.77 K/uL (1.40-6.50) 08/04/24 20:22 Lymph # (Auto) 3.53 K/uL (1.20-3.40) H 08/04/24 20:22 Cavalier # (Auto) 1.02 K/uL (0.11-0.59) H 08/04/24 20:22 Eos # (Auto) 0.08 K/uL (0.00-0.50) 08/04/24 20:22 Baso # (Auto) 0.04 K/uL (0.00-0.20) 08/04/24 20:22 Immature Gran # (Auto) 0.12 K/uL (0.01-0.20) 08/04/24 20:22 Sodium 135 mmol/L (136-145) L 08/04/24 20:22 Potassium 4.1 mmol/L (3.5-5.1) 08/04/24 20:22 Chloride 99 mmol/L (98-107) 08/04/24 20:22 Carbon Dioxide 31 mmol/L (21-32) 08/04/24 20:22 Anion Gap 5 (3-11) 08/04/24 20:22 BUN 14 mg/dl (6-23) 08/04/24 20:22 Creatinine 0.75 mg/dl (0.6-1.4) 08/04/24 20:22 Est Cr Clr Drug Dosing 110.2 ml/min 08/04/24 20:22 Est GFR ( Amer) 114.8 ml/min 08/04/24 20:22 Est GFR (Non-Af Amer) 99.0 ml/min 08/04/24 20:22 BUN/Creatinine Ratio 18.7 (10-20) 08/04/24 20:22 Glucose 124 mg/dl (70-99(Fasting)) H 08/04/24 20:22 Calcium 9.3 mg/dl (8.6-10.3) 08/04/24 20:22 Magnesium 1.4 mg/dl (1.7-2.4) L 08/04/24 20:22 Total Bilirubin 0.3 mg/dl (0.2-1.0) 08/04/24 20:22 AST 14 U/L (13-39) 08/04/24 20:22 ALT 13 U/L (7-52) 08/04/24 20:22 Alkaline Phosphatase 64 U/L (34-104) 08/04/24 20:22 Troponin I High Sens 2.5 pg/ml (0-20) 08/04/24 20:22 Total Protein 6.8 gm/dl (6.0-8.3) 08/04/24 20:22 Albumin 3.8 gm/dl (3.4-5.0) 08/04/24 20:22 Globulin 3.0 gm/dl (2.5-4.0) 08/04/24 20:22 Albumin/Globulin Ratio 1.3 (0.9-2) 08/04/24 20:22 Urine Color Yellow 08/04/24 21:04 Urine Appearance Clear (Clear) 08/04/24 21:04 Urine pH 8.0 (4.5-7.5) H 08/04/24 21:04 Ur Specific [place] 1.009 (1.000-1.030) 08/04/24 21:04 Urine Protein Negative (Negative) 08/04/24 21:04 Urine Glucose (UA) Negative (Negative) 08/04/24 21:04 Urine Ketones Negative (Negative) 08/04/24 21:04 Urine Blood Negative (Negative) 08/04/24 21:04 Urine Nitrite Negative (Negative) 08/04/24 21:04 Urine Bilirubin Negative (Negative) 08/04/24 21:04 Urine Urobilinogen Negative (Negative) 08/04/24 21:04 Ur Leukocyte Esterase Negative (Negative) 08/04/24 21:04 Urine Opiates Screen Neg (Neg) 08/04/24 21:04 Ur Methadone, Qual Neg (Neg) 08/04/24 21:04 Urine Fentanyl Screen Neg (Neg) 08/04/24 21:04 Urine Barbiturates Neg (Neg) 08/04/24 21:04 Ur Phencyclidine (PCP) Neg (Neg) 08/04/24 21:04 U Amphetamin/Meth Scrn Neg (Neg) 08/04/24 21:04 MDMA (Ecstasy) Screen Neg (Neg) 08/04/24 21:04 U Benzodiazepines Scrn Neg (Neg) 08/04/24 21:04 Ur Cocaine Metabolite Neg (Neg) 08/04/24 21:04 U Marijuana (THC) Screen Neg (Neg) 08/04/24 21:[address] 08/04/24 21:44 Exam(s): CT HEAD Without Contrast EXAM: CT Head Without Intravenous Contrast CLINICAL HISTORY: Reason for exam: neuro deficit, acute stroke suspected. TECHNIQUE: Axial computed tomography images of the head/brain without intravenous contrast. CTDI is 36.55 mGy and DLP is 624.41 mGy-cm. Automated exposure control was utilized for the study. A dose lowering technique was utilized adhering to the principles of ALARA. COMPARISON: No relevant prior studies available. FINDINGS: Brain: Unremarkable. No hemorrhage. No significant white matter disease. No edema. Ventricles: Mild ventriculomegaly. Bones/joints: Unremarkable. No acute fracture. Soft tissues: Unremarkable. Sinuses: Unremarkable as visualized. No acute sinusitis. Mastoid air cells: Unremarkable as visualized. No mastoid effusion. IMPRESSION: No evidence of acute intracranial pathology. Electronically signed by: Sheri Holbrook MD 08/05/24 00:19 AM Head CTA 08/04/24 21:44 Exam(s): CTA HEAD With Contrast IV Amt: 119 cc opti 320 EXAM: CT Angiography Head With Intravenous Contrast CLINICAL HISTORY: Reason for exam: neuro deficit, acute stroke suspected. TECHNIQUE: Axial computed tomographic angiography images of the head with intravenous contrast. CTDI is 20.76 mGy and DLP is 1139.68 mGy-cm. Automated exposure control was utilized for the study. A dose lowering technique was utilized adhering to the principles of ALARA. MIP reconstructed images were created and reviewed. CONTRAST: Patient received 119 cc opti 320 of IV contrast COMPARISON: No relevant prior studies available. FINDINGS: The dural venous sinuses are patent. Right internal carotid artery: No acute findings. Intracranial segment is patent with no significant stenosis. No aneurysm. Right anterior cerebral artery: Unremarkable. No occlusion or significant stenosis. No aneurysm. Right middle cerebral artery: Unremarkable. No occlusion or significant stenosis. No aneurysm. Right posterior cerebral artery: Unremarkable. No occlusion or significant stenosis. No aneurysm. Right vertebral artery: Unremarkable as visualized. Left internal carotid artery: No acute findings. Intracranial segment is patent with no significant stenosis. No aneurysm. Left anterior cerebral artery: Unremarkable. No occlusion or significant stenosis. No aneurysm. Left middle cerebral artery: Unremarkable. No occlusion or significant stenosis. No aneurysm. Left posterior cerebral artery: Unremarkable. No occlusion or significant stenosis. No aneurysm. Left vertebral artery: Unremarkable as visualized. Basilar artery: Unremarkable. No occlusion or significant stenosis. No aneurysm. IMPRESSION: Negative CT angiogram of the head. Electronically signed by: Sheri Holbrook MD 08/05/24 00:23 AM Neck CTA 08/04/24 21:44 Exam(s): CTA NECK With Contrast IV Amt: 119 cc opti 320 EXAM: CT Angiography Neck With Intravenous Contrast CLINICAL HISTORY: Reason for exam: neuro deficit, acute stroke suspected. TECHNIQUE: Routine carotid CT angiography protocol was performed with intravenous contrast. NASCET criteria using the distal ICAs for comparison were used for evaluation of stenoses. CTDI is 20.76 mGy and DLP is 1139.68 mGy-cm. Automated exposure control was utilized for the study. A dose lowering technique was utilized adhering to the principles of ALARA. MIP reconstructed images were created and reviewed. CONTRAST: Patient received 119 cc opti 320 of IV contrast COMPARISON: None. FINDINGS: VASCULATURE: Right common carotid artery: Unremarkable. No occlusion or significant stenosis. No dissection. Right internal carotid artery: Unremarkable. Extracranial segment is patent with no occlusion or significant stenosis. No dissection. Right external carotid artery: Unremarkable. No occlusion. Right vertebral artery: Unremarkable. No occlusion or significant stenosis. No dissection. Left common carotid artery: Unremarkable. No occlusion or significant stenosis. No dissection. Left internal carotid artery: Unremarkable. Extracranial segment is patent with no occlusion or significant stenosis. No dissection. Left external carotid artery: Unremarkable. No occlusion. Left vertebral artery: Unremarkable. No occlusion or significant stenosis. No dissection. NECK: Bones/joints: Unremarkable. No acute fracture. Soft tissues: Unremarkable. Lung apices: Clear. CAROTID STENOSIS REFERENCE USING NASCET CRITERIA: % ICA stenosis = (1 - narrowest ICA diameter/diameter of distal cervical ICA) x 100. Mild - <50% stenosis. Moderate - 50-69% stenosis. Severe - 70-94% stenosis. Near occlusion - 95-99% stenosis. Occluded - 100% stenosis. IMPRESSION: Negative CTA neck. Electronically signed by: Sheri Holbrook MD 08/05/24 00:25 AM ECG Additional Comments: ECG sinus bradycardia with rate of 55. QTc 420 Code Status & VTE Plan VTE Prophylaxis Plan VTE Prophylaxis will be ordered: Yes
[2024-08-05] MEDS ORDERED: POLYETHYLENE (MIRALAX) 17 GM PACK PO PRN (03:19)
[2024-08-05] MEDS ORDERED: ACETAMINOPHEN 325 MG TAB PO PRN (03:19)
[2024-08-05] MEDS ORDERED: PHARMACIST DISCHARGE MED REC CONSULT PRN (03:19)
[2024-08-05] MEDS ORDERED: ALBUTEROL HFA 8 GM INHALER INH PRN (03:19)
[2024-08-05] MEDS ORDERED: NITROGLYCERIN SL 0.4 MG/TAB TAB SL PRN (03:19)
[2024-08-05] MEDS: SODIUM CHLORIDE 0.9% 1,000 ML IV SCH (03:44)
[2024-08-05 04:05] VITALS: TEMP 98.4
[2024-08-05] MEDS: LEVOTHYROXINE SODIUM 75 MCG TABLET PO SCH (04:28)
[2024-08-05] MEDS: DULoxetine HCL 30 MG CAP PO SCH (04:29)
[2024-08-05 06:13] LABS: Basophils # (auto) 0.05 K/uL (0.00-0.20); Basophils % (auto) 0.5 %; Eosinophils # (auto) 0.11 K/uL (0.00-0.50); Eosinophils % (auto) 1.2 %; Hematocrit (blood only) 32.9 % (42.0-52.0); Hemoglobin 11.6 g/dl (14.0-18.0); Immature Granulocytes % (auto) 1.1 %; Lymphocytes # (auto) 3.18 K/uL (1.20-3.40); Lymphocytes % (auto) 34.9 %; Mean Corpuscular Hemoglobin 33.4 pg (25.0-34.0); Mean Corpuscular Hgb Conc 35.3 g/dL (32.0-36.0); Mean Corpuscular Volume 94.8 fL (80.0-100.0); Mean Platelet Volume 9.5 fL (9.4-12.4); Monocytes # (auto) 1.33 K/uL (0.11-0.59); Monocytes % (auto) 14.6 %; Neutrophils # (auto) 4.34 K/uL (1.40-6.50); Neutrophils % (auto) 47.7 %; Platelet Count 226 K/uL (130-400); RDW Coefficient of Variation 13.3 % (11.5-14.5); RDW Standard Deviation 46.1 fL (36.4-46.3); Red Blood Count 3.47 M/uL (4.70-6.10); White Blood Count 9.11 K/ul (4.8-10.8)
[2024-08-05 06:35] LABS: BUN Creatinine Ratio 18.6 (10-20); Calcium 8.7 mg/dl (8.6-10.3); Chol HDL Ratio 3.7 (0-5); Creatinine Clr Calc Pharmacy 128.6 ml/min; Est GFR (African American) 118.1 ml/min; Est GFR (Non-African American) 101.9 ml/min; Magnesium 1.9 mg/dl (1.7-2.4); Potassium 3.9 mmol/L (3.5-5.1)
[2024-08-05 07:42] LABS: Estimated Average Glucose 111 mg/dl; Hemoglobin A1C 5.5 % (4.5-5.6)
[2024-08-05 08:23] LABS: Thyroid Stimulating Hormone 3.389 uIu/ml (0.300-4.500)
[2024-08-05] MEDS: DIVALPROEX DELAY RELEASE 500 MG TAB PO SCH (08:54)
[2024-08-05] MEDS: PROPRANOLOL HCL 20 MG TAB PO SCH (08:54)
[2024-08-05] MEDS: FAMOTIDINE 20 MG TAB PO SCH (08:54)
[2024-08-05] MEDS: CYANOCOBALAMIN (B-12) 500 MCG TABLET PO SCH (08:54)
[2024-08-05] MEDS: PANTOprazole 40 MG TAB PO SCH (08:55)
[2024-08-05] MEDS: DOCUSATE SODIUM SYRUP 100 MG/10 ML UDC PO SCH (08:55)
[2024-08-05] MEDS: TAMSULOSIN HCL 0.4 MG CAP PO SCH (08:55)
--- NOTE | 2024-08-05 10:33 | XRay Report ---
XR chest 1V not portable CLINICAL HISTORY: confusion TECHNIQUE: Single frontal radiograph of the chest was obtained. Comparison: Comparison is made to chest radiograph 01/08/2024 FINDINGS: No lines and tubes are seen. The cardiomediastinal silhouette is normal. The lungs are clear. No evid ence of pleural effusion or pneumothorax. IMPRESSION: No acute chest disease. ACT 112: Negative or not required by law. Electronically signed by: Ryan Denton M.D. 08/05/2024 10:31 AM
[2024-08-05 10:45] VITALS: PULSE 61; RESP 19; O2SAT 96
[2024-08-05 10:54] LABS: Adenovirus PCR Not Detected (NotDetected); Bordetella parapertussis PCR Not Detected (NotDetected); Bordetella pertussis PCR Not Detected (NotDetected); Chlamydia pneumoniae PCR Not Detected (NotDetected); Coronavirus 229E PCR Not Detected (NotDetected); Coronavirus CoV-2 (COVID19)PCR Not Detected (NotDetected); Coronavirus HKU1 PCR Not Detected (NotDetected); Coronavirus NL63 PCR Not Detected (NotDetected); Coronavirus OC43PCR Not Detected (NotDetected); Human Metapneumovirus PCR Not Detected (NotDetected); Influenza A PCR Not Detected (NotDetected); Influenza B PCR Not Detected (NotDetected); Mycoplasma pneumoniae PCR Not Detected (NotDetected); Parainfluenza Virus 1 PCR Not Detected (NotDetected); Parainfluenza Virus 2 PCR Not Detected (NotDetected); Parainfluenza Virus 3 PCR Not Detected (NotDetected); Parainfluenza Virus 4 PCR Not Detected (NotDetected); Respiratory Syncytial VirusPCR Not Detected (NotDetected); Rhinovirus/Enterovirus PCR Not Detected (NotDetected)
[2024-08-05] MEDS: GADOBUTROL 65ML VIAL IV ONE (11:19)
--- NOTE | 2024-08-05 11:48 | Magnetic Resonance Report ---
MR brain wo/w con CLINICAL HISTORY: dizziness, imbalance TECHNIQUE: Multiplanar and multisequence MR images of the brain were obtained prior to and following administration of gadolinium contrast. Comparison: Comparison is made to CTA head and neck 08/04/2024 FINDINGS: No abnormal restricted diffusion is identified. The white matter is unremarkable. The ventricular sys tem is normal in appearance. No mass or abnormal enhancement is seen. There is no mass effect or midl ine shift. There is no evidence of acute intraparenchymal hemorrhage. No extra axial fluid collection s are seen. The corpus callosum, pituitary gland, and cerebellar tonsils appear grossly unremarkable. Flow voids of the major intracranial arterial vessels are identified. The imaged portions of the para nasal sinuses, mastoid air cells, and orbits are unremarkable. IMPRESSION: No acute abnormalities. ACT 112: Negative or not required by law. Electronically signed by: Ryan Denton M.D. 08/05/2024 11:47 AM
[2024-08-05] MEDS ORDERED: STROKE PATIENT DISCHARGE STA (12:27)
--- NOTE | 2024-08-05 12:31 | Discharge Summary ---
Discharge Summary Date of Service August 05, 2024 Principal Dx & Hospital Course #1 = Principal Diagnosis (1) Dehydration symptoms: (2) Hypomagnesemia: (3) Gastroenteritis due to food toxin: Plan Patient presented to the emergency room with complaints of some weakness and dizziness. Also complained of some ataxia. Patient was evaluated in the ED. No acute findings on head imaging. He did have some slight hypomagnesemia. He was referred for further evaluation. Patient was not monitored in the hospital. There is no significant arrhythmias on telemetry monitoring. Orthostatic vital signs were negative. TSH was in therapeutic range. His magnesium was replaced. He was given some IV hydration. Follow-up head imaging with MRI showed no acute cerebrovascular event. He was ruled out for acute stroke. On the morning of discharge his lightheadedness and dizziness and weakness and ataxia has completely resolved. He was left with his residual chronic tremor. Patient reports he is feeling back to his baseline. Additional history was obtained from the patient he reported that last weekend he had some significant gastroenteritis. This was thought to be potentially due to some spoiled food. He reports having a significant jakob of diarrhea. His oral intake was definitely decreased. Apparently this extended through the beginning of the week. The symptoms have resolved but subsequently for the last few days he was experiencing this lightheadedness this dizziness this difficulty with walking. This is now subsequently resolved after some hydration. He was also seen by speech here in the hospital and cleared for regular diet. Other laboratory studies have been normal or improved are stable. He can be [facility] back to [facility] for his usual ongoing care Notes For Next Care Provider Medication Changes From Visit None Admission HPI Per Admitting Provider 59-year-old male coming from [facility] with past medical history significant for hyperlipidemia, hypertension, depression, back pain, history of opiate use withdrawal, history of intermittent asthma, GERD, anxiety disorder comes because of imbalance and dizziness going on for last 2 to 3 days. Patient states he is feeling dizzy and not able to walk straight for last 2 -3 days. Thinks he is somewhat disoriented and could not think straight. Denies any headache. Vision is okay. No runny nose or sore throat or cough. He says last week he had couple of days of fever but got resolved. Had sore throat last week. Appetite is okay. Denies any chest pain or shortness of breath. Has some nausea. No abdominal pain. Normal bladder movements. Constipated. Had a normal bowel movement yesterday. Currently resting comfortably and hemodynamically stable. Past medical history as mentioned above Past surgical history. He has no surgeries. He has a plate in his right hand. Social history. Smokes about a pack a day. No alcohol. 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 Family history. Father and mother had depression. Father had multiple back surgeries. Admission Exam Per Admitting Provider See H&P Discharge Exam Constitutional: Alert HEENT: Mucous membranes moist. Lungs: Clear to auscultation, decreased, no wheezes rales or rhonchi CV: S1-S2, regular Abdomen: Soft, nontender, nondistended Extremities: No significant edema Neuro: No focal deficits, chronic hand tremor, NIH stroke scale=0 Psych: Cooperative, normal mood Updated Medication List Medication Instructions Recorded Confirmed Type albuterol sulfate 90 mcg/actuation 2 puff inhalation QID PRN 08/05/24 08/05/24 History aerosol inhaler (Proventil HFA) Shortness Of Breath Or Wheezing atorvastatin 10 mg PO HS 08/05/24 08/05/24 History cyanocobalamin (vitamin B-12) 500 500 mcg PO DAILY 08/05/24 08/05/24 History mcg tablet divalproex 500 mg tablet,delayed 1,000 mg PO BID 08/05/24 08/05/24 History release docusate sodium 100 mg capsule 250 mg PO DAILY 08/05/24 08/05/24 History (Colace) duloxetine 30 mg capsule,delayed 30 mg PO DAILYBB 08/05/24 08/05/24 History release (Cymbalta) duloxetine 60 mg capsule,delayed 60 mg PO HS 08/05/24 08/05/24 History release (Cymbalta) famotidine 20 mg tablet 20 mg PO DAILY 08/05/24 08/05/24 History guanfacine 2 mg tablet 2 mg PO HS 08/05/24 08/05/24 History hydroxyzine pamoate 50 mg capsule 50 mg PO HS 08/05/24 08/05/24 History levothyroxine 75 mcg tablet 75 mcg PO DAILY 08/05/24 08/05/24 History losartan 25 mg tablet 25 mg PO HS 08/05/24 08/05/24 History naltrexone microspheres 380 mg 380 mg IM DIRECTED 08/05/24 08/05/24 History intramuscular suspension,extended release (Vivitrol) omeprazole 20 mg capsule,delayed 20 mg PO DAILY 08/05/24 08/05/24 History release propranolol 20 mg tablet 20 mg PO UD 08/05/24 08/05/24 History tamsulosin 0.4 mg capsule (Flomax) 0.4 mg PO DAILY 08/05/24 08/05/24 History Hospital Stay Data Consultations 08/05/24 00:52 ED Decision to Admit Stat Diagnostic Imagining Performed 08/04/24 21:44 CT angio head w con Stat CT angio neck with con Stat CT head/brain wo con Stat 08/05/24 03:19 MR brain wo/w con Routine Reviewed imaging, laboratory and diagnostic studies. Pertinent findings as below. MRI of the brain negative for acute findings CBC stable BMP stable, magnesium 1.9, improved Hemoglobin A1c 5.5% Troponins negative Cholesterol 150 LDL 79 HDL 41 TSH 3.3 Respiratory viral panel negative Urine drug screen negative Pending Results Patient Have Any Pending Studies at Discharge: No Discharge Instructions Given to Patient (Per Discharging Provider) Continue your usual care Total Time Total Time Spent Total Time Spent (In Minutes): 35
[2024-08-05 12:49] VITALS: BP 139/68
[2024-08-05] MEDS ORDERED: ATORVASTATIN 10 MG TAB PO SCH (21:00)
[2024-08-05] MEDS ORDERED: hydrOXYzine HCl 25 MG TAB PO SCH (21:00)
[2024-08-05] MEDS ORDERED: guanFACINE HCL 1 MG TAB PO SCH (21:00)
[2024-08-05] MEDS ORDERED: DULoxetine HCL 60 MG CAP PO SCH (21:00)
[2024-08-05] MEDS ORDERED: LOSARTAN POTASSIUM 25 MG TAB PO SCH (21:00)
[2024-08-05] MEDS ORDERED: PROPRANOLOL HCL 20 MG TAB PO SCH (21:00)
--- NOTE | 2024-08-06 13:14 | Electrocardiogram Report ---
Test Reason : Blood Pressure : */* mmHG Vent. Rate : 55 BPM Atrial Rate : 55 BPM P-R Int : 154 ms QRS Dur : 82 ms QT Int : 440 ms P-R-T Axes : -21 15 39 degrees QTcB Int : 420 ms Probable low atrial rhythm Borderline ECG When compared with ECG of 08-Jan-2024 20:12, DE interval has decreased Low right atrial rhythm has replaced Sinus rhythm Confirmed by Satya Coyle ([id number]) on 08/06/2024 1:14:08 PM Referred By: [facility] Confirmed By: Satya Coyle
== END 2024-08-05 14:41 | DRG 641 ==
LOC: ED 19:51 → 4W 08-05 02:31 → INTOOBSV 08-05 02:31 → 4W 08-05 03:15